=== PATIENT | female | born 1980 | race Caucasian/White ===

== ENCOUNTER 2018-05-17 15:30 | Outpatient (RCR) | payer OTHER, SELFPAY ==
--- NOTE | 2017-08-11 12:59 | MASS.EVAL ---
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 She was referred to the [facility] facility for a massotherapy evaluation by Dr. Louis Segura with the diagnosis of back aches. Alexandra presents today with the symptoms of tension and pain in her neck, upper, lower back, hips and legs. She reports having a history of chronic back pain and muscle tension in her neck, shoulders and low back. She reports having minimal limitations during her daily activities currently. OBJECTIVE: Upon observation Alexandra has poor posture with her head forward and shoulders forward from the neutral position in sitting and standing. After examination and palpation I found Alexandra to have very high muscle tension in her scalenes, trapezius, rhomboids, and sub occipitals with no restrictions in cervical ROM. Her thoracic paraspinals were tender with muscle knots. Her hips, hamstrings and lumbar muscles were also very tight with tender points. The first treatment consisted of a one hour massage to her full body with myofascial release and compression techniques. ASSESSMENT: I feel that Alexandra is a good candidate for massotherapy at this time. She had a favorable response to the first treatment with reduction in her muscle aches, pain and tension. She also had improvement in her cervical and lumbar range of motion with improved flexibility in her neck, back and lower extremities. PLAN: The plan of care was reviewed with the patient. The patient is to be seen on as needed basis for a total of ten sessions with the recommendation of once every four weeks for a one hour treatment.
--- NOTE | 2017-08-11 13:08 | MASS.EVAL_ITS ---
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 She was referred to the [facility] facility for a massotherapy evaluation by Dr. Louis Segura with the diagnosis of back aches. Alexandra presents today with the symptoms of tension and pain in her neck, upper, lower back, hips and legs. She reports having a history of chronic back pain and muscle tension in her neck, shoulders and low back. She reports having minimal limitations during her daily activities currently. OBJECTIVE: Upon observation Alexandra has poor posture with her head forward and shoulders forward from the neutral position in sitting and standing. After examination and palpation I found Alexandra to have very high muscle tension in her scalenes , trapezius, rhomboids, and sub occipitals with no restrictions in cervical ROM. Her thoracic paraspinals were tender with muscle knots. Her hips, hamstrings and lumbar muscles were also very tight with tender points. The first treatment consisted of a one hour massage to her full body with myofascial release and compression techniques. ASSESSMENT: I feel that Alexandra is a good candidate for massotherapy at this time. She had a favorable response to the first treatment with reduction in her muscle aches, pain and tension. She also had improvement in her cervical and lumbar range of motion with improved flexibility in her neck, back and lower extremities. PLAN: The plan of care was reviewed with the patient. The patient is to be seen on as needed basis for a total of ten sessions with the recommendation of once every four weeks for a one hour treatment.
--- NOTE | 2018-07-14 11:08 | DS.PCM_ITS ---
Massage Therapy Discharge Summary: Initial Evaluation: 08/03/2017 Diagnosis: Back ache No. of Visits: 5 of 10 Date of last visit: 05/17/2018 Goals: Decreased pain Increased flexibility This patient is being discharged from our care at the [facility]. Thank you, Renata Morales LMT
== END 2018-05-17 19:00 | disposition home or self-care (01) ==
LOC: MASS 15:30
PROVIDERS: Family Provider Internal Medicine; PCP Internal Medicine; Visit Provider Family Medicine
DX: M54.9 Dorsalgia, unspecified (principal)
CPT/HCPCS: 97124

== ENCOUNTER → 2019-06-14 14:24 | Outpatient (CLI) | payer OTHER, SELFPAY ==
[2019-06-13 14:55] VITALS: BMI 20.5
== END ==
PROVIDERS: Family Provider Family Medicine; PCP Family Medicine; Referring Provider Physician Assistant Surgical; Visit Provider Physician Assistant Surgical
DX: J02.9 Acute pharyngitis, unspecified (principal)
CPT/HCPCS: 87070

== ENCOUNTER 2019-07-03 13:30 | Outpatient (RCR) | payer OTHER, SELFPAY ==
[2018-08-18 08:18] VITALS: BMI 20.5
--- NOTE | 2018-10-10 16:24 | MASS.EVAL ---
Massage Therapy Evaluation: Initial Evaluation Date: 10/10/2018 /Age: 0802/23/1983, 38 Diagnosis: Body Aches Medications: Albuterol Merena Goals: Decrease muscle pain/ache Decrease muscle tension Improve range of motion Plan: The patient is a good candidate for massage. She is to be seen one time per month or PRN for a total of 10 visits. Renata Morales LMT
--- NOTE | 2019-07-05 11:38 | MASS.DISCH ---
Massage Therapy Discharge Summary: Initial Evaluation Date: 10/10/2018 Diagnosis: Body Aches No. of Visits: Date of last visit: 07/03/2019 Goals: Achieved decreased muscle pain/ache, decreased muscle tension amd improved ROM. This patient is being discharged from our care at the [facility]. Thank you, Renata Morales LMT
== END 2019-07-03 19:00 | disposition home or self-care (01) ==
LOC: MASS 13:30
PROVIDERS: Family Provider Family Medicine; PCP Family Medicine; Visit Provider Family Medicine
DX: M79.10 Myalgia, unspecified site (principal)
CPT/HCPCS: 97124

== ENCOUNTER → 2020-06-19 | Outpatient (CLI) | payer OTHER, SELFPAY ==
[2019-06-13 14:55] VITALS: BMI 20.5
== END | disposition home or self-care (01) ==
PROVIDERS: PCP Family Medicine; Visit Provider Dermatology
DX: B35.1 Tinea unguium (principal); L60.3 Nail dystrophy; L82.1 Other seborrheic keratosis
CPT/HCPCS: 87101

== ENCOUNTER 2020-07-01 12:15 | Outpatient (RCR) | payer OTHER, SELFPAY ==
[2019-06-13 14:55] VITALS: BMI 20.5
--- NOTE | 2019-09-20 14:38 | MASS.EVAL ---
Massage Therapy Evaluation: Initial Evaluation Date: 09/20/2007 /Age: 08 1980, 39 Diagnosis: Body Aches Goals: Decrease mucsle tension Promote relaxation Assessment: Alexandra is a good candidate for massage at this time. We have had success treating her symptoms in the past. Plan: To be seen one time per month or PRN for a total of 10 one hour sessions.
--- NOTE | 2020-07-15 12:00 | DS.PCM_ITS ---
Massage Therapy Discharge Summary: Initial Evaluation Date: 09/20/2019 Diagnosis: Body Aches No. of Visits: 7 Date of last visit: 07/01/2020 This patient is being discharged from our care at the [facility]. Thank you, Renata Morales LMT
== END 2020-07-01 19:00 | disposition home or self-care (01) ==
LOC: MASS 12:15
PROVIDERS: PCP Family Medicine; Referring Provider Family Medicine; Visit Provider Family Medicine
DX: R52 Pain, unspecified (principal)
CPT/HCPCS: 97124

== ENCOUNTER 2021-06-09 13:45 | Outpatient (RCR) | payer OTHER, SELFPAY ==
[2019-06-13 14:55] VITALS: BMI 20.5
--- NOTE | 2020-09-02 15:48 | MASS.EVAL ---
Massage Therapy Evaluation: Initial Evaluation Date: 08/28/2020 SUBJECTIVE: Alexandra is a 40 year old female who was referred to the [facility] facility for a massotherapy evaluation by Dr. Don with the diagnosis of body aches. She presents today with the symptoms of pain, stiffness and tension in the neck, head, mid back, low back, and hips. Alexandra reports having a past medical history of chronic pain with muscle tension. She reports having minimal improvement with exercise and stretching over the last few months. OBJECTIVE: Upon observation Alexandra has some posture issues with her head and shoulders forward from the neutral position in sitting and standing. After examination and palpation, I found Alexandra to have high muscle tension with tenderness and myofascial restrictions in her sub occipitals, levator scapulae, trapezius, rhomboids, scalenes, and thoracic paraspinals. Her QL?s, lumbar paraspinals, piriformis, glute medius and minimus all were very tight with fascial restrictions, tender points and trigger points. The first treatment consisted of a one hour massage to her upper body with myofascial release, muscle stripping, trigger point compression techniques, and cervical manual traction. ASSESSMENT: I feel that Alexandra is a good candidate for massotherapy at this time. She had a favorable response to the first treatment with reduction in her muscle aches, pain and tension. She also had improvement in her cervical flexibility and low back flexibility. PLAN: The plan of care was reviewed with the patient. The patient is to be seen on an as needed basis for a total of ten sessions with the recommendation of once every month for a one hour treatment.
--- NOTE | 2021-06-09 15:09 | DS.PCM_ITS ---
Massage Therapy Discharge Summary: Discharge Date: 06/09/2021 Alexandra was seen for a massotherapy evaluation on 08/28/2020 with the diagnosis of body aches. She was treated with ten sessions of massage therapy consisting of deep pressure soft tissue techniques, myofascial release and trigger point compression to her cervical, thoracic, lower back, lower extremities and hips. Alexandra responded well to the therapy by reporting decreased tension and pain throughout her neck, shoulders, lower back and hips. Her goals for therapy were met throughout the treatment sessions. At this time this patient is being discharged from our care at [facility] facility.
== END 2021-06-09 19:00 | disposition home or self-care (01) ==
LOC: MASS 13:45
PROVIDERS: PCP Family Medicine; Visit Provider Family Medicine
DX: M79.10 Myalgia, unspecified site (principal)
CPT/HCPCS: 97124

== ENCOUNTER → 2021-12-19 | Outpatient (CLI) | payer OTHER, SELFPAY | END | disposition home or self-care (01) | PROVIDERS: PCP Family Medicine; Referring Provider Family Medicine; Visit Provider Family Medicine | DX: Z01.419 Encounter for gynecological examination (general) (routine) without abnormal findings (principal) | CPT/HCPCS: 36415 ==

== ENCOUNTER → 2022-04-14 | Outpatient (CLI) | payer OTHER, SELFPAY ==
--- NOTE | 2022-04-14 07:55 | BI_ITS ---
MAMMOGRAPHY - BILATERAL SCREENING 3-D TOMOSYNTHESIS REASON FOR EXAM: Female, 42 years old. SCREENING PERTINENT HISTORY: No significant family history. TECHNIQUE: 2-D mammograms and 3-D Tomosynthesis of the breast (s) were performed. CAD was performed. COMPARISON: None. FINDINGS: The breast composition is Extermely dense tissue. Scattered benign calcifications are seen. No dense spiculated masses or suspicious microcalcifications are identified. No architectural distortion is identified. There is no skin thickening or retraction. There has been no significant change since the prior study. BI/SCRN MAMM (CAD)W/CHANDA BILAT IMPRESSION: No mammographic signs of malignancy. Routine yearly mammograms recommended. ASSESSMENT CATEGORY: BIRADS Category 1: Negative. A letter regarding these results will be sent to the patient by the facility within 30 days. FOLLOW UP RECOMMENDATION: Yearly follow up mammogram recommended. (A) Approximately 10% of breast cancers are not detected by mammography. A normal mammogram should not delay biopsy of a clinically suspicious abnormality. Electronically Signed: Trevor Diaz MD at 8:52 EDT ,
== END | disposition home or self-care (01) ==
LOC: OPBI 07:54
PROVIDERS: PCP Family Medicine; Visit Provider Obstetrics & Gynecology
DX: Z12.31 Encounter for screening mammogram for malignant neoplasm of breast (principal)
CPT/HCPCS: 77063; 77067

== ENCOUNTER → 2023-01-15 | Outpatient (CLI) | payer OTHER, SELFPAY ==
--- NOTE | 2023-01-15 10:58 | RAD_ITS ---
INDICATION: HIP PAIN EXAMINATION/TECHNIQUE: X-RAY - LEFT XR Hip Unilateral with Pelvis when performed; 2-3 Views COMPARISON: None. FINDINGS: Single AP view of the pelvis. 2 views left hip. BONES: Bilateral L5 sacralization. Otherwise, anatomic alignment without evidence of fracture or subluxation. No concerning bony lesion or abnormal sclerosis to suggest lesion. JOINTS: No significant degenerative change. SOFT TISSUES: IUD overlies central pelvis. RAD/HIP, UNI W/ Pelvis 2-3 Views IMPRESSION: No acute osseous abnormality of the pelvis or left hip. Electronically Signed: Hilton Mcgarry MD at 21:17 EDT ,
== END | disposition home or self-care (01) ==
LOC: RAD 10:53
PROVIDERS: PCP Family Medicine; Referring Provider Family Medicine; Visit Provider Family Medicine
DX: M25.552 Pain in left hip (principal)
CPT/HCPCS: 73502

== ENCOUNTER → 2023-02-04 | Outpatient (CLI) | payer OTHER, SELFPAY ==
[2023-02-04 12:21] LABS: Anion Gap 7 (5-15); BUN 16 mg/dL (7-18); BUN/Creat Ratio 19.6 RATIO (10-20); Calcium,Total 8.9 mg/dL (8.5-10.1); Chloride 105 mmol/L (98-107); Cholesterol 143 mg/dL (200); Creatinine, Serum 0.82 mg/dL (0.55-1.02); EST Glomerular Filtration Rate 82 mL/min (>60); Est Glom Filt Rate - Afr Amer 99 mL/min (>60); Glucose 89 mg/dL (74-106); High Density Lipoprotein 67 mg/dL; Potassium 3.8 mmol/L (3.5-5.1); Sodium Level 139 mmol/L (136-145); Triglycerides 89 mg/dL; Very Low Density Lipoprotein 18 mg/dL (5-40)
== END | disposition home or self-care (01) ==
PROVIDERS: PCP Family Medicine; Referring Provider Family Medicine; Visit Provider Family Medicine
DX: Z01.419 Encounter for gynecological examination (general) (routine) without abnormal findings (principal)
CPT/HCPCS: 36415; 80048; 80061

== ENCOUNTER → 2023-04-15 | Outpatient (CLI) | payer OTHER, SELFPAY ==
--- NOTE | 2023-04-15 10:36 | BI_ITS ---
MAMMOGRAPHY - BILATERAL SCREENING REASON FOR EXAM: Female, 43 years old. Routine annual screening examination. PERTINENT HISTORY: Non-contributory. TECHNIQUE: Digital bilateral breast chanda (3D mammographic acquisition) in the CC and MLO projections. 2-D mediolateral oblique (MLO) and craniocaudad (CC) views of both breasts were obtained. CAD: Full Field Digital Mammography with Computer Added Detection was performed. COMPARISON: Comparison is made with prior study of April 14, 2022. FINDINGS: Breast Composition: The breasts are extremely dense, which lowers the sensitivity of mammography. There are no dominant masses or suspicious calcifications. No other significant abnormalities are identified. There has been no significant change since the prior study. BI/SCRN MAMM (CAD)W/CHANDA BILAT IMPRESSION: Stable bilateral screening mammogram. Yearly follow-up mammogram recommended. (A) ASSESSMENT CATEGORY: BIRADS Category 1: Negative. A letter regarding these results will be sent to the patient by the facility within 30 days. Approximately 10% of breast cancers are not detected by mammography. A normal mammogram should not delay biopsy of a clinically suspicious abnormality. [id number] Electronically Signed: Flo Persaud MD at 12:35 EDT ,
== END | disposition home or self-care (01) ==
LOC: OPBI 10:34
PROVIDERS: PCP Family Medicine; Referring Provider Obstetrics & Gynecology; Visit Provider Obstetrics & Gynecology
DX: Z12.31 Encounter for screening mammogram for malignant neoplasm of breast (principal)
CPT/HCPCS: 77063; 77067

== ENCOUNTER → 2024-05-10 | Outpatient (CLI) | payer OTHER, SELFPAY ==
--- NOTE | 2024-05-10 15:07 | RAD_ITS ---
EXAM: XR CHEST, 2 VIEWS CLINICAL INDICATION: COUGH TECHNIQUE: Frontal and lateral views of the chest. COMPARISON: No relevant prior studies available. FINDINGS: LUNGS AND PLEURAL SPACES: Unremarkable. No consolidation or edema. No pneumothorax. No effusion. HEART: Unremarkable. Cardiac silhouette not enlarged. MEDIASTINUM: Central airways and mediastinal contour are unremarkable. BONES/JOINTS: Unremarkable. No acute fracture. SOFT TISSUES: Unremarkable. RAD/Chest PA and Lateral IMPRESSION: No radiographic evidence of acute cardiopulmonary disease. Electronically Signed: José Miguel Sams MD at 18:41 EDT ,
== END | disposition home or self-care (01) ==
LOC: MTRAD 15:06
PROVIDERS: PCP Family Medicine; Referring Provider Family Medicine; Visit Provider Family Medicine
DX: R05.9 Cough, unspecified (principal)
CPT/HCPCS: 71046

== ENCOUNTER → 2024-05-18 | Outpatient (CLI) | payer OTHER, SELFPAY ==
--- NOTE | 2024-05-18 11:49 | BI_ITS ---
MAMMOGRAPHY - BILATERAL SCREENING REASON FOR EXAM: Female, 44 years old. Routine annual screening examination. PERTINENT HISTORY: Non-contributory. TECHNIQUE: Digital bilateral breast chanda (3D mammographic acquisition) in the CC and MLO projections. 2-D mediolateral oblique (MLO) and craniocaudad (CC) views of both breasts were obtained. CAD: Full Field Digital Mammography with Computer Added Detection was performed. COMPARISON: Comparison is made with prior study dated April 15, 2023 April 14, 2022. FINDINGS: Breast Composition: The breasts are extremely dense, which lowers the sensitivity of mammography. There are no dominant masses or suspicious calcifications. No other significant abnormalities are identified. There has been no significant change since the prior study. BI/SCRN MAMM (CAD)W/CHANDA BILAT IMPRESSION: Stable bilateral screening mammogram. Yearly follow-up mammogram recommended. (A) ASSESSMENT CATEGORY: BIRADS Category 1: Negative. A letter regarding these results will be sent to the patient by the facility within 30 days. Approximately 10% of breast cancers are not detected by mammography. A normal mammogram should not delay biopsy of a clinically suspicious abnormality. [id number] Electronically Signed: Flo Persaud MD at 13:15 EDT ,
== END | disposition home or self-care (01) ==
LOC: OPBI 11:47
PROVIDERS: PCP Family Medicine; Referring Provider Nurse Practitioner Family; Visit Provider Nurse Practitioner Family
DX: Z12.31 Encounter for screening mammogram for malignant neoplasm of breast (principal)
CPT/HCPCS: 77063; 77067

== ENCOUNTER → 2025-02-09 | Outpatient (CLI) | payer OTHER, SELFPAY | END | disposition home or self-care (01) | LOC: MFPLAB 14:54 | PROVIDERS: PCP Family Medicine; Referring Provider Family Medicine; Visit Provider Family Medicine | DX: Z13.29 Encounter for screening for other suspected endocrine disorder (principal) | CPT/HCPCS: 84443 ==

== ENCOUNTER → 2025-05-28 | Outpatient (CLI) | payer OTHER, SELFPAY ==
--- NOTE | 2025-05-28 13:34 | BI_ITS ---
EXAM: BI/SCRN MAMM (CAD)W/CHANDA BILAT
== END | disposition home or self-care (01) ==
LOC: OPBI 13:33
PROVIDERS: PCP Family Medicine; Referring Provider Obstetrics & Gynecology; Visit Provider Obstetrics & Gynecology
DX: Z12.31 Encounter for screening mammogram for malignant neoplasm of breast (principal)
CPT/HCPCS: 77063; 77067

== ENCOUNTER → 2025-06-27 | Outpatient (CLI) | payer OTHER, SELFPAY ==
--- NOTE | 2025-06-27 15:40 | RAD_ITS ---
PROCEDURE: CERV SPINE OBL/FLEX/EXT COMP 06/27/2025 REASON FOR EXAM: CERVICALGIA TECHNIQUE: Procedure Code: [id number] Modality: DX Procedure: CERV SPINE OBL/FLEX/EXT COMP COMPARISON: None FINDINGS: Cervical spine 7 views with flexion and extension. Vertebral body height is maintained. There is grade 1 retrolisthesis at C3-4, 0.2 cm with extension, 0 cm with flexion. There is grade 1 retrolisthesis at C4-5, 0.2 cm with extension, 0 cm with flexion. The facets are aligned. Soft tissues are unremarkable. Mineralization is normal. There is no visible atherosclerosis. RAD/Cerv Spine Obl/Flex/Ext Comp IMPRESSION: There is grade 1 retrolisthesis at C3-4, 0.2 cm with extension, 0 cm with flexi on. There is grade 1 retrolisthesis at C4-5, 0.2 cm with extension, 0 cm with flexion. Reading Location: [facility]
--- OUTSIDE RECORDS SUMMARY | 2025-06-27 17:47 | XMS RPT_ITS | CCD ---
Author Organization [facility] Care Team Providers Care Manager Environmental Health And Safety Name Role Phone Dossi ALYSIAAnnie Unavailable Zonia Barton MD Primary Care Provider Dr. Louis Don Primary Care Provider Dr. Louis Don Referring Provider Dr. Hermes Barcenas Attending Provider LUCITA Perry Attending Provider Dr. Louis Don Primary Care Provider Dr. Louis Don Referring Provider LUCITA Perry Attending Provider Zonia Barton MD Primary Care Provider Dr. Louis Don MD Primary Care Provider [phone] Assessment, Health Risk Attending Provider Unava ilable Assessment, Health Risk Referring Provider Unava ilable Dr. Louis Don MD Attending Provider [phone] Louis Don MD Referring Provider SELF Referring Unavailable MIS FRAZIER Attending Unavailable Mis Frazier Referring Unavailable Mis Frazier Attending Unavailable Louis Don Primary Care Unavailable Louis Don Referring Unavailable Louis Don Attending Unavailable Louis Don Primary Care Unavailable Assessment, Health Risk Referring Unavaila ble Assessment, Health Risk Attending Unavaila ble Louis Don Primary Care Unavailable Allergies Allergy Classification Reported Allergen(s) Allergy Type Date of Onset Reaction(s) Facility (4 sources) CALCIUM OYSTER SHELL drug allergy 7 [facility] Work Phone: (4 sources) [facility] drug allergy 7 dermatitis [facility] Work Phone: (3 sources) Dust; Translations: [DUST] Propensity to adverse reactions [address] [facility] Work Phone: (8 sources) Latex; Translations: [LATEX] Propensity to adverse reactions [address] [facility] Work Phone: (3 sources) Pollen; Translations: [POLLEN] Propensity to adverse reactions [address] [facility] Work Phone: (2 sources) ANIMALS [Other] Propensity to adverse reactions [address] [facility] Work Phone: (2 sources) SHELL FISH [Other] Propensity to adverse reactions [address] [facility] Work Phone: (7 sources) Shellfish; Translations: [SHELLFISH DERIVED] Allergy to substance 9 unknown [facility] (1 source) Latex Drug allergy (disorder) 4 [facility] Repository Medications Current Medications Medication Drug Class(es) Dates Sig (Normalized) Sig (Original) [id number] 200 actuat albuterol 0.09 mg/actuat metered dose inhaler (3 sources) beta2-Adrenergic Agonist Start: 05-06-2024 Albuterol Sulfate 90 mcg/actuation HFA aerosol inhaler Active INHALATION May 06, 2024 12:00am Start: 07-01-2016 take 2 puff(s) by in halation every four hours as needed albuterol HFA (PROVENTIL HFA, VENTOLIN HFA) 90 mcg/actuation inhaler Indications: Uncomplicated asthma, unspecified asthma severity Inhale 2 Puffs as instructed every 4 hours as needed. 1 Inhaler 5 07/01/2016 Active Comment on above: Inhale 2 Puffs as in structed every 4 hours as needed. COMPOUNDED PRESCRIPTION (2 sources) Start: 10-20-2011 COMPOUNDED PRESCRIPTION Can have Massage Therapy as needed 1 Units 10 10/20/2011 Active Comment on above: Can have Massage The rapy as needed levonorgestrel 0.086116 mg/hr intrauterine system (6 sources) Progestin, Progestin-containing Intrauterine Device Start: 12-30-2020 End: 12-29-2026 levonorgestrel (MIRENA) 20 mcg/24 hours (6 yrs) 52 mg IUD Indications: Encounter for IUD insertion 1 Each by INTRAUTERINE route as directed. 1 Each 0 12/30/2020 12/29/2026 Active Start: 01-11-2017 MIRENA (52 MG) 20 MCG/24HR IUD IUD LEVONORGESTREL [id number] Annie Carrillo [place] Start: 01-11-2017 MIRENA (52 MG) 20 MCG/24HR IUD IUD LEVONORGESTREL [id number] Annie Carrillo DC Comment on above: 1 Each by INTRAUTERI NE route as directed. montelukast 10 mg oral tablet (11 sources) Leukotriene Receptor Antagonist Start: 01-29-20 16 take 1 tablet by mouth once daily in the evening Montelukast (Singulair) 10 mg tablet Active 10 mg PO EVERY EVENING August 18, 2018 1:00am Comment on above: Take 1 tablet by josesito th once daily. TAKE DIRECTED multivitamin tablet (2 sources) Start: 03-25-20 12 take 1 tablet by mouth once daily multivitamin tablet Take 1 tablet by mouth once daily. 0 03/25/2012 Active Comment on above: Take 1 tablet by josesito th once daily. predniSONE 20 mg oral tablet (2 sources) Start: 05-06-20 24 take 1 tablet by mouth twice daily Prednisone 20 mg tablet Active 20 mg PO TWICE A DAY May 06, 2024 12:00am Start: 05-06-2024 Prednisone 20 mg tablet Active 0 .ROUTE .COMPLEX 20 0 May 06, 2024 12:00am Take 3 tablets (60mg) daily for days 1-3 then 2 tablets daily for days 4-6 then 1 tablet daily for days 7-9 then 1/2 tablet daily for days 10-13; Completed/Discontinued Medications Medication Drug Class(es) Dates Sig (Normalized) Sig (Original) amoxicillin 500 mg oral capsule (5 sources) Penicillin-class Antibacterial Start: 08-18-2018 End: 08-28-2018 take 2 capsules by mouth twice daily Amoxicillin 500 mg capsule Discontinued 1000 mg PO TWICE A DAY 40 10 0 August 18, 2018 1:00am August 27, 2018 1:00am August 28, 2018 1:09am Start: 08-18-2018 End: 08-28-2018 take 1000 mg by mouth twice daily Amoxicillin Discontinued 1000 MG PO TWICE A DAY 40 August 18, 2018 1:00am August 28, 2018 1:09am amoxicillin 875 mg / clavulanate 125 mg oral tablet (1 source) Penicillin-class Antibacterial Start: 04-29-2024 End: 05-06-2024 Amoxicillin-Pot Clavulanate 875-125 mg tablet Discontinued 1 {tbl} PO TWICE A DAY 14 7 0 April 29, 2024 12:00am May 05, 2024 12:00am May 06, 2024 12:13am EPINEPHRINE (6 sources) alpha-Adrenergic Agonist, beta-Adrenergic Agonist, Catecholamine Start: 01-11-2017 EPIPEN 2-GABRIEL 0.3 MG/0.3ML SOAJ PRN EPINEPHRINE [id number] Annie Sheffield Dossi [place] Start: 01-11-2017 EPIPEN 2-GABRIEL 0 .3 MG/0.3ML SOAJ PRN EPINEPHRINE [id number] Annie Sheffield Dossi [place] Start: 04-07-2016 EPINEPHrine 0. 3 mg/0.3 mL auto-injector Indications: Toxic effect of fish and shellfish(988.0) Inject subcutaneously. use as directed 2 Each 0 04/07/2016 Active Comment on above: Inject subcutaneousl y. use as directed Problems Active Problems Problem Classification Problem Date Documented Date Episodic/Chronic Asthma (7 sources) Acute asthma; Translations: [Unspecified asthma, uncomplicated] Onset: 07-15-2006 01-11-2017 Chronic Other screening for suspected conditions (not mental disorders or infectious disease) (4 sources) Patient encounter status; Translations: [Encounter for screening mammogram for malignant neoplasm of breast] Onset: 02-15-2025 Episodic Other upper respiratory disease (4 sources) Seasonal allergy; Translations: [Other seasonal allergic rhinitis] Onset: 01-11-2017 01-11-2017 Chronic Other upper respiratory disease (2 sources) Allergic rhinitis; Translations: [Allergic rhinitis, unspecified] 03-25-2012 Chronic Other upper respiratory infections (10 sources) Streptococcal sore throat; Translations: [Streptococcal pharyngitis] 08-18-2018 Episodic Otitis media and related conditions (1 source) Perforation of tympanic membrane; Translations: [Unspecified perforation of tympanic membrane, unspecified ear] 04-29-2024 Episodic Past or Other Problems Problem Classification Problem Date Documented Da te Episodic/Chronic Allergic reactions (1 source) Contact dermatitis; Translations: [Unspecified contact dermatitis, unspecified cause] Onset: 07-15-2006 Resolved: 07-10-2011 07-10-2011 Episodic Other and unspecified benign neoplasm (2 sources) Dysplastic nevus of skin; Translations: [Melanocytic nevi, unspecified] Onset: 12-31-2014 12-31-2014 Episodic Other bone disease and musculoskeletal deformities (8 sources) Segmental and somatic dysfunction; Translations: [Segmental and somatic dysfunction of thoracic region] Onset: 01-11-2017 01-11-2017 Episodic Other complications of (1 source) Missed miscarriage; Translations: [Missed ] Onset: 09-10-2010 Resolved: 09-12-2010 09-12-2010 Episodic Other and delivery including normal (1 source) Normal in primigravida; Translations: [Encounter for supervision of normal first , unspecified trimester] Onset: 05-14-2011 Resolved: 01-25-2013 01-25-2013 Episodic Poisoning by nonmedicinal substances (1 source) Toxic effect of unspecified seafood, accidental (unintentional), initial encounter; Translations: [Toxic effect of fish and shellfish eaten as food] Onset: 08-09-2008 Resolved: 07-10-2011 07-10-2011 Episodic Results Test Name Value Interpretation Reference Range Facility SCRN MAMM (CAD)W/CHANDA BILATo n 05-28-2025 SCRN MAMM (CAD)W/CHANDA BILAT [facility] Imaging Services [address], [place] [id number] SCRN MAMM (CAD)W/CHANDA BILAT MR#: [id number] Acct: [id number] Name: ALEXANDRA HAYNES Rep #: [id number] : 1980 F 45 From: Sivan Staley i, MD PCP: Dr. Louis Don MD Status: REG CLI Study: SCRN MAMM (CAD)W/CHANDA BILAT Date of Exam: 10/17 Exam# [id number] Ordering Dr: Mis Frazier MD EXAM: SCRN MAMM (CAD)W/CHANDA BILAT DATE: 05/28/2025 CLINICAL HISTORY: F, Age 45 y/o , SCREENING TECHNIQUE: Procedure Code: BISMWCADBTOM Modality: MG Procedure: SCRN MAMM (CAD)W/CHANDA BILAT COMPARISON: Prior exam(s) were compared FINDINGS: TISSUE DENSITY: The breasts are extremely dense, which lowers the sensitivity of mammography. Bilateral Breast Mammographic Findings: No significant masses, calcifications or other abnormalities are identified. BI/SCRN MAMM (CAD)W/CHANDA BILAT IMPRESSION: No mammographic evidence of malignancy. OVERALL FINAL ASSESSMENT BI-RADS 1: NEGATIVE. RECOMMENDATION: Routine annual follow-up in 1 Year Additional Recommendation none A letter with findings and recommendations will be mailed to the patient. Reading Location: [facility] CC: Dr. Louis Don MD; Dr. Mis Frazier MD Magazine Worker: Signed [facility] CNOVon 05-09-2025 CNOV Office Visit (OBGYWM) -------- HAYNESALEXANDRA Sheffield ([id number]) 1980 F Date Time Provider Department 05/09/25 2:00 PM MIS FRAZIER OBGYWM During your visit today, we recorded the following information about you: Blood pressure Weight Height 98/58 61.2 kg 1.632 m Mis Frazier MD 05/09/2025 2:21 PM Signed Alexandra is a 45 year old who presents for an annual gynecologic exam without complaints. Still get period: No LMP: no w/ mirena Time with current partner: 26 control frequency: Always HPV vaccine: No; History of abnormal pap: No, all prior PAP smears have been normal Bothersome pelvic pain: No Last mammogram:up to date OB History Gravida2 Para1 Term1 Preterm0 AB1 Living1 SAB1 IAB0 Ectopic0 Multiple0 Live Births1 Telecommunications Linesworker History LMP: 12/14/2014, IUD Age at Menarche: 18 Age at First : Age at Menopause: Telecommunications Linesworker History Comments: Sexual Activity: Yes; Male; Mirena 12/30/2020 Contraception: I.U.D. PAST MEDICAL HISTORY Diagnosis Date Allergic rhinitis, cause unspecified DERMATITIS NOS 07/15/2006 Hypoglycemia, unspecified Unspecified asthma(493.90) PAST SURGICAL HISTORY Procedure Laterality Date INSERTION OF IUD 11/2014 INSERTION OF IUD 12/30/2020 TONSILLECTOMY PRIMARY/SECONDARY Tonsillectomy FAMILY HISTORY Problem Relation Age of Onset None Mother other (Rheumtoid Arthritis) Father Heart Father Diabetes Maternal Grandmother Stroke Maternal Grandmother Diabetes Maternal Grandfather Heart Maternal Grandfather mi, with a blocked artery Hypertension Maternal Grandfather Lipids Maternal Grandfather Cancer Maternal Aunt ovarian ca, unsure SOCIAL HISTORY Social History Tobacco Use Smoking status: Former Smokeless tobacco: Never Tobacco comments: smoked at the age of 19/18 for about one year and has seen quit (1 pack about every two weeks) Vaping Use Vaping status: Never Used Substance Use Topics Alcohol use: Yes Comment: RARELY,NOT WHILE Drug use: No REVIEW OF SYSTEMS Abdomen: No abdominal pain, nausea, vomiting, diarrhea, or constipation. No bloating, early satiety, indigestion, or increased flatulence. Bladder: No dysuria, gross hematuria, urinary frequency, urinary urgency, or incontinence. Breast: No breast lumps, nipple d/c, overlying skin changes, redness or skin retraction. Allergies and current medication updated:Yes SENSITIVE EXAM: The sensitive examination was discussed with the Patient or Patient's Authorized Gasoline Truck Operator. As applicable, any other physician, advance practice provider, medical student, or other health professional student that will be observing or involved in the sensitive examination for educational or training purposes was discussed with the Patient or Authorized Gasoline Truck Operator. The Patient or Authorized Gasoline Truck Operator has agreed to proceed with the sensitive examination. (Sensitive examination includes inspection and/or palpation of the breasts, pelvis, prostate and anorectal regions). EXAM: BP 98/58 Ht 5' 4.25 (1.63m) Wt 135 lb (61.2kg) LMP 12/14/2014 BMI 22.99 kg/(m2). GENERAL: pleasant, female in no apparent distress HEENT: Normocephalic, atraumatic, mucus membranes moist, and no lesions NECK: Supple, full range of motion, no adenopathy, and thyroid normal DERMATOLOGY: Normal, without lesions, non-icteric, and non-hirsute BREAST: soft, non-tender, symmetric, no dominant mass, normal nipple-areolar complex, no lymphadenopathy, and no nipple discharge CHEST: Normal inspiratory effort ABDOMEN: soft, non-tender, and no masses PELVIC: external genitalia normal, normal Bartholin's glands, urethra, [place]'s glands, no vulvar lesions, no cervical lesions, good vaginal support, physiologic discharge present, normal appearing perineal body and perianal region BIMANUAL: uterus normal size, shape and consistency, no adnexal masses, and non-tender RECTOVAGINAL: deferred. NEURO: alert and oriented x3,exam grossly non-focal EXTREMITIES: normal ASSESSMENT/PLAN: 1) Health maintenance: Pap done with HPV. Mammogram ordered. 2) Contraception: IUD. Contraceptive options reviewed and information provided. 3) STD screening: Declined STI check. 4) Follow up one year or sooner as needed Mis Frazier MD Referring Provider: SELF [200] Allergies As of Date: 05/09/2025 Noted Allergy Reaction DUST 09/02/2005 LATEX 09/30/2006 9 - Itching Comments: hands blister and break out. POLLEN 09/02/2005 SHELLFISH DERIVED 05/09/2025 10 - Anaphylaxis Date Reviewed: 05/09/2025 Reviewed by: Mis Frazier MD - Fully Assessed Reason for Visit: Yearly Exam [187] Primary Visit Diagnosis:Encounte r for gynecological examination (general) (routine) without abnormal findings [Z01.419] Prescriptions as of 05/09/2025 - levonorgestrel (MIRENA) 20 mcg/ (more content not included)... Normal [facility] Absolute lymphocyte countOrd ered By: HEALTH ASSESSMENT on 02-09-2025 Lymphocytes Auto (Unsp spec) [#/Vol] 1.80 10*3/uL 0.83-4.51 [facility] Absolute neutrophil countOrd ered By: HEALTH ASSESSMENT on 02-09-2025 Neutrophils (Bld) [#/Vol] 2.9 10*3/uL 2.0-7.7 [facility] Absolute nucleated red blood cell countOrdered By: HEALTH ASSESSMENT on 02-09-2025 Nucleated RBC (Bld) [#/Vol] 0.00 10*3/uL 0-5 [facility] Anion gap in Serum or Plasma Ordered By: HEALTH ASSESSMENT on 02-09-2025 Anion gap [Moles/Vol] 11 mmol/L 5-15 [facility] BUN/creatinine ratioOrdered By: HEALTH ASSESSMENT on 02-09-2025 Urea nitrogen/Creatinine [Mass ratio] 24.8 mg/mg High 10-20 [facility] Bilirubin Test strip Ql (U)O rdered By: HEALTH ASSESSMENT on 02-09-2025 Bilirubin Ql (U) Negative Negative [facility] Bilirubin directOrdered By: HEALTH ASSESSMENT on 02-09-2025 Bilirubin.direct [Mass/Vol] 0.23 mg/dL 0.00-0.30 [facility] Bilirubin, totalOrdered By: HEALTH ASSESSMENT on 02-09-2025 Bilirubin [Mass/Vol] 0.56 mg/dL 0.00-1.30 [facility] CBC, Employeeon 02-09-2025 Absolute Lymph 1.80 X10 3/uL Normal 0.83-4.51 [facility] Comment on above: Performed By: #### L 400.0100, L500.2900, L100.0200 #### [facility] [address] [place], [address] Absolute Neut 2.9 X10 3/uL Normal 2.0-7.7 [facility] Comment on above: Performed By: #### L 400.0100, L500.2900, L100.0200 #### [facility] [address] [place], [address] Basophils/100 WBC (Bld) 0.6 % Normal 0-1 [facility] Comment on above: Performed By: #### L 400.0100, L500.2900, L100.0200 #### [facility] [address] [place], [address] Eosinophils/100 WBC (Bld) 1.5 % Normal 0-5 [facility] Comment on above: Performed By: #### L 400.0100, L500.2900, L100.0200 #### [facility] [address] [place], [address] Erythrocyte distribution width (RBC) [Ratio] 12.6 % Normal 11.6-14.6 [facility] Comment on above: Performed By: #### L 400.0100, L500.2900, L100.0200 #### [facility] [address] [place], [address] Hematocrit (Bld) [Volume fraction] 38.8 % Normal 37-47 [facility] Comment on above: Performed By: #### L 400.0100, L500.2900, L100.0200 #### [facility] [address] [place], [address] Hemoglobin (Bld) [Mass/Vol] 13.1 g/dL Normal 12.0-15.0 [facility] Comment on above: Performed By: #### L 400.0100, L500.2900, L100.0200 #### [facility] [address] [place], [address] Lymphocytes/100 WBC (Bld) 34.5 % Normal 19-41 [facility] Comment on above: Performed By: #### L 400.0100, L500.2900, L100.0200 #### [facility] [address] [place], [address] MCH (RBC) [Entitic mass] 31.1 pg Normal 27.0-32.0 [facility] Comment on above: Performed By: #### L 400.0100, L500.2900, L100.0200 #### [facility] [address] [place], [address] MCHC (RBC) [Mass/Vol] 33.8 g/dL Normal 32-36 [facility] Comment on above: Performed By: #### L 400.0100, L500.2900, L100.0200 #### [facility] [address] [place], [address] MCV (RBC) [Entitic vol] 92.2 fL Normal 81-99 [facility] Comment on above: Performed By: #### L 400.0100, L500.2900, L100.0200 #### [facility] [address] [place], [address] Monocytes/100 WBC (Bld) 8.4 % Normal 0-10 [facility] Comment on above: Performed By: #### L 400.0100, L500.2900, L100.0200 #### [facility] [address] [place], [address] Neutrophils/100 WBC (Bld) 54.8 % Normal 47-70 [facility] Comment on above: Performed By: #### L 400.0100, L500.2900, L100.0200 #### [facility] [address] [place], [address] NRBC # 0.00 10 3/uL Normal 0-5 [facility] Comment on above: Performed By: #### L 400.0100, L500.2900, L100.0200 #### [facility] [address] [place], [address] Nucleated RBC (Bld) [#/Vol] 0 10*3/uL Normal 0-5 [facility] Comment on above: Performed By: #### L 400.0100, L500.2900, L100.0200 #### [facility] [address] [place], [address] Platelet mean volume (Bld) [Entitic vol] 10.0 fL Normal 6.2-12.0 [facility] Comment on above: Performed By: #### L 400.0100, L500.2900, L100.0200 #### [facility] [address] [place], [address] Platelets (Bld) [#/Vol] 233 10*3/uL Normal 150-450 [facility] Comment on above: Performed By: #### L 400.0100, L500.2900, L100.0200 #### [facility] [address] [place], [address] RBC (Bld) [#/Vol] 4.21 10*6/uL Normal 4.2-5.4 [facility] Comment on above: Performed By: #### L 400.0100, L500.2900, L100.0200 #### [facility] [address] [place], [address] RDW SD 42.9 fl Normal 35.1-43.9 [facility] Comment on above: Performed By: #### L 400.0100, L500.2900, L100.0200 #### [facility] [address] [place], [address] WBC (Bld) [#/Vol] 5.2 10*3/uL Normal 4.4-11.0 [facility] Comment on above: Performed By: #### L 400.0100, L500.2900, L100.0200 #### [facility] [address] [place], [address] Calculated very low density lipoprotein (VLDL) cholesterol measurementOrdered By: HEALTH ASSESSMENT on 02-09-2025 Calculated very low density lipoprotein (VLDL) cholesterol measurement 25 mg/dL 5-40 [facility] Carbon dioxide, total [Moles /volume] in Central venous bloodOrdered By: HEALTH ASSESSMENT on 02-09-2025 CO2 [Moles/Vol] 24.3 mmol/L 21.0-32.0 [facility] Chloride assayOrdered By: HE ALTH ASSESSMENT on 02-09-2025 Chloride [Moles/Vol] 104 mmol/L 98-108 [facility] Profile[employer] Cholesterol in LDL [Mass/Vol] 62 mg/dL Normal 0-130 [facility] Comment on above: Performed By: #### L 400.0100, L500.2900, L100.0200 #### [facility] [address] [place], [address] Erythrocyte distribution wid th ratioOrdered By: HEALTH ASSESSMENT on 02-09-2025 Erythrocyte distribution width (RBC) [Ratio] 12.6 % 11.6-14.6 [facility] Erythrocyte distribution wid th standard deviationOrdered By: HEALTH ASSESSMENT on 02-09-2025 Erythrocyte distribution width (RBC) [Ratio] 42.9 fl 35.1-43.9 [facility] Glomerular filtration rate ( GFR) estimation/1.73 sq m using serum, plasma, or whole bOrdered By: HEALTH ASSESSMENT on 02-09-2025 GFR/1.73 sq M.predicted among non-blacks MDRD (S/P/Bld) [Vol rate/Area] 102 mL/min/{1.73_m2} >60 [facility] Comment on above: mL/min/1.73m2 CKD-EP I Creatinine Equation (2020) Hematocrit Auto (Bld) [Volum e fraction]Ordered By: HEALTH ASSESSMENT on 02-09-2025 Hematocrit (Bld) [Volume fraction] 38.8 % 37-47 [facility] Hemoglobin measurementOrdere d By: HEALTH ASSESSMENT on 02-09-2025 Hemoglobin (Bld) [Mass/Vol] 13.1 g/dL 12.0-15.0 [facility] Ketones Test strip Ql (U)Ord ered By: HEALTH ASSESSMENT on 02-09-2025 Ketones Ql (U) Negative Negative [facility] Laboratory - Chemistry and C hemistry - challengeOrdered By: HEALTH ASSESSMENT on 02-09-2025 AST [Catalytic activity/Vol] 18 U/L <32 [facility] Lactate dehydrogenase (LDH) measurementOrdered By: HEALTH ASSESSMENT on 02-09-2025 LDH [Catalytic activity/Vol] 160 U/L 84-246 [facility] Comment on above: Hemolysis present, R esults could be affected. MCV (mean corpuscular volume ) determinationOrdered By: HEALTH ASSESSMENT on 02-09-2025 MCV (RBC) [Entitic vol] 92.2 fL 81-99 [facility] Mean corpuscular hemoglobin (MCH) determinationOrdered By: HEALTH ASSESSMENT on 02-09-2025 MCH (RBC) [Entitic mass] 31.1 pg 27.0-32.0 [facility] Mean corpuscular hemoglobin concentration (MCHC) determinationOrdered By: HEALTH ASSESSMENT on 02-09-2025 MCHC (RBC) [Mass/Vol] 33.8 g/dL 32-36 [facility] Mean platelet volume determi nationOrdered By: HEALTH ASSESSMENT on 02-09-2025 Platelet mean volume (Bld) [Entitic vol] 10.0 fL 6.2-12.0 [facility] Neutrophil percentageOrdered By: HEALTH ASSESSMENT on 02-09-2025 Neutrophils/100 WBC (Bld) 54.8 % 47-70 [facility] Nitrite Test strip Ql (U)Ord ered By: HEALTH ASSESSMENT on 02-09-2025 Nitrite Ql (U) Negative Negative [facility] Nucleated red blood cell per centageOrdered By: HEALTH ASSESSMENT on 02-09-2025 Nucleated RBC/100 WBC (Bld) [Ratio] 0 % 0-5 [facility] Platelet countOrdered By: HE ALTH ASSESSMENT on 02-09-2025 Platelets (Bld) [#/Vol] 233 10*3/uL 150-450 [facility] Potassium measurement (mass/ volume)Ordered By: HEALTH ASSESSMENT on 02-09-2025 Potassium (Unsp spec) [Mass/Vol] 4.0 mmol/L 3.3-5.1 [facility] Comment on above: Hemolysis present, R esults could be affected. Protein Test strip Ql (U)Ord ered By: HEALTH ASSESSMENT on 02-09-2025 Protein Ql (U) 15 mg/dl High Negative [facility] RBC Auto (Bld) [#/Vol]Ordere d By: HEALTH ASSESSMENT on 02-09-2025 RBC (Bld) [#/Vol] 4.21 10*6/uL 4.2-5.4 [facility] Screening total cholesterol/ high density lipoprotein (HDL) cholesterol ratioOrdered By: HEALTH ASSESSMENT on 02-09-2025 Cholesterol.total/Gris sterol in HDL [Mass ratio] 2.30 {ratio} [facility] Serum creatinine measurement (mass/volume)Ordered By: HEALTH ASSESSMENT on 02-09-2025 Creatinine [Mass/Vol] 0.75 mg/dL 0.70-1.20 [facility] Serum globulin measurementOr dered By: HEALTH ASSESSMENT on 02-09-2025 Globulin (S) [Mass/Vol] 2.4 g/dL 2.2-4.2 [facility] Serum glucose measurement (m ass/volume)Ordered By: HEALTH ASSESSMENT on 02-09-2025 Glucose [Mass/Vol] 103 mg/dL High 70-99 [facility] Serum or plasma alanine mendez otransferase (ALT) measurementOrdered By: HEALTH ASSESSMENT on 02-09-2025 ALT [Catalytic activity/Vol] 16 U/L <35 [facility] Serum or plasma albumin kyung urement (mass/volume)Ordered By: HEALTH ASSESSMENT on 02-09-2025 Albumin [Mass/Vol] 4.4 g/dL 3.5-5.0 [facility] Serum or plasma albumin/glob ulin mass ratioOrdered By: HEALTH ASSESSMENT on 02-09-2025 Albumin/Globulin [Mass ratio] 1.8 {ratio} 0.9-2.4 [facility] Serum or plasma alkaline nikita sphatase measurementOrdered By: HEALTH ASSESSMENT on 02-09-2025 ALP [Catalytic activity/Vol] 41 U/L 35-104 [facility] Serum or plasma calcium kyung urement (mass/volume)Ordered By: HEALTH ASSESSMENT on 02-09-2025 Calcium [Mass/Vol] 9.1 mg/dL 7.6-11.0 [facility] Serum or plasma cholesterol in HDL measurement (mass/volume)Ordered By: HEALTH ASSESSMENT on 02-09-2025 Cholesterol in HDL [Mass/Vol] 66 mg/dL >40 [facility] Comment on above: National Cholesterol Education Program (NCEP) guidelines:<40 mg/dL: Low HDL-cholesterol (major risk factor for CHD)>= 60 mg/dL: High HDL-cholesterol (negative risk factor for CHD)HDL-cholesterol is affected by a number of factors, e.g. smoking, exercise, hormones, sex and age. Serum or plasma cholesterol in LDL measurement (mass/volume)Ordered By: HEALTH ASSESSMENT on 02-09-2025 Cholesterol in LDL [Mass/Vol] 62 mg/dL 0-130 [facility] Serum or plasma cholesterol measurement (mass/volume)Ordered By: HEALTH ASSESSMENT on 02-09-2025 Cholesterol [Mass/Vol] 153 mg/dL <201 [facility] Comment on above: Cholesterol level, D esirable <200 mg/dLBorderline high cholesterol 200-239 mg/dLHigh cholesterol >=240 mg/dLRecommendations of the NCEP Adult Treatment Panel for the following risk-cutoff thresholds for the [place] population. Serum or plasma urea nitroge n measurement (mass/volume)Ordered By: HEALTH ASSESSMENT on 02-09-2025 Urea nitrogen [Mass/Vol] 19 mg/dL 4-19 [facility] Serum or plasma uric acid me asurement (mass/volume)Ordered By: [facility] ASSESSMENT on 02-09-2025 Urate [Mass/Vol] 3.2 mg/dL 2.6-6.0 [facility] Comment on above: The drugs N-Acetylcy steine and Metamizole may falsely depress this assay. Sodium levelOrdered By: [facility] ASSESSMENT on 02-09-2025 Sodium [Moles/Vol] 140 mmol/L 133-145 [facility] TSH DL <= 0.005 mIU/L QnOrde red By: Louis Don on 02-09-2025 TSH Qn 0.446 uIU/mL 0.300-4.200 [facility] Thyroid Stim Hormone (TSH)on 02-09-2025 TSH 0.446 uIU/mL Normal 0.300-4.200 [facility] Comment on above: Order Comment: ALYSA Khan ADD ON TO SPECIMENT #[id number] Performed By: #### L [id number] #### [facility] [address] [place], [address] Total proteinOrdered By: [facility] ASSESSMENT on 02-09-2025 Protein [Mass/Vol] 6.8 g/dL 5.9-8.4 [facility] Triglycerides measurementOrd ered By: HEALTH ASSESSMENT on 02-09-2025 Triglyceride [Mass/Vol] 126 mg/dL <199 [facility] Comment on above: The drugs N-Acetylcy steine and Metamizole may falsely depress this assay. Normal range: <150 mg/dLBorderline High: 150-199 mg/dLHigh: 200-499 mg/dLVery High: >500 mg/dL Urinalysis, Employeeon 02-09 BILIRUBIN URINE Negative Normal Negative [facility] Comment on above: Order Comment: Urine , Random Performed By: #### L 400.0100, L500.2900, L100.0200 #### [facility] [address] [place], [address] Clarity (U) Clear Normal Clear [facility] Comment on above: Order Comment: Urine , Random Performed By: #### L 400.0100, L500.2900, L100.0200 #### [facility] [address] [place], [address] Color (U) Yellow Normal Yellow [facility] Comment on above: Order Comment: Urine , Random Performed By: #### L 400.0100, L500.2900, L100.0200 #### [facility] [address] [place], [address] GLUCOSE, UR Normal Normal Normal [facility] Comment on above: Order Comment: Urine , Random Performed By: #### L 400.0100, L500.2900, L100.0200 #### [facility] [address] [place], [address] KETONE UR Negative Normal Negative [facility] Comment on above: Order Comment: Urine , Random Performed By: #### L 400.0100, L500.2900, L100.0200 #### [facility] [address] [place], [address] LEUK ESTERASE 100 /ul Abnormal Negative [facility] Comment on above: Order Comment: Urine , Random Performed By: #### L 400.0100, L500.2900, L100.0200 #### [facility] [address] [place], [address] Nitrite Ql (U) Negative Normal Negative [facility] Comment on above: Order Comment: Urine , Random Performed By: #### L 400.0100, L500.2900, L100.0200 #### [facility] [address] [place], [address] OCCULT BLOOD-UR Negative Normal Negative [facility] Comment on above: Order Comment: Urine , Random Performed By: #### L 400.0100, L500.2900, L100.0200 #### [facility] [address] [place], [address] pH UR 7.0 Normal 5.0 - 8.0 [facility] Comment on above: Order Comment: Urine , Random Performed By: #### L 400.0100, L500.2900, L100.0200 #### [facility] [address] [place], [address] PROT DIPSTX 15 mg/dl Abnormal Negative [facility] Comment on above: Order Comment: Urine , Random Performed By: #### L 400.0100, L500.2900, L100.0200 #### [facility] [address] [place], [address] SP.GR. DIPSTX 1.010 Normal 1.002-1.030 [facility] Comment on above: Order Comment: Urine , Random Performed By: #### L 400.0100, L500.2900, L100.0200 #### [facility] [address] [place], [address] UROBILI Normal Normal Normal [facility] Comment on above: Order Comment: Urine , Random Performed By: #### L 400.0100, L500.2900, L100.0200 #### [facility] [address] [place], [place], [id number] Urine clarityOrdered By: [facility] ASSESSMENT on 02-09-2025 Clarity (U) Clear Clear [facility] Urine color determinationOrd ered By: HEALTH ASSESSMENT on 02-09-2025 Color (U) Yellow Yellow [facility] Urine glucose detectionOrder ed By: HEALTH ASSESSMENT on 02-09-2025 Glucose Ql (U) Normal mg/dl Normal [facility] Urine leukocyte esterase det ection by dipstickOrdered By: HEALTH ASSESSMENT on 02-09-2025 Leukocyte esterase Test strip Ql (U) 100 /ul High Negative [facility] Urine pHOrdered By: HEALTH A SSESSMENT on 02-09-2025 pH (U) 7.0 [pH] 5.0 - 8.0 [facility] Urine specific gravity measu rementOrdered By: HEALTH ASSESSMENT on 02-09-2025 Specific gravity (U) [Rel density] 1.010 1.002-1.030 [facility] Urine urobilinogen measureme ntOrdered By: HEALTH ASSESSMENT on 02-09-2025 Urobilinogen Ql (U) Normal mg/dl Normal [facility] White blood cell (WBC) count Ordered By: HEALTH ASSESSMENT on 02-09-2025 WBC (Bld) [#/Vol] 5.2 10*3/uL 4.4-11.0 [facility] Absolute lymphocyte countOrd ered By: HEALTH ASSESSMENT on 02-04-2023 Lymphocytes Auto (Unsp spec) [#/Vol] 1.97 10*3/uL 0.83-4.51 [facility] Absolute reticulocyte countO rdered By: HEALTH ASSESSMENT on 02-04-2023 Reticulocytes (Bld) [#/Vol] 0.00 10*3/uL 0-5 [facility] Basophil percentageOrdered B y: Louis Don on 02-04-2023 Chloride [Moles/Vol] 105 mmol/L 98-107 [facility] Cholesterol [Mass/Vol] 143 mg/dL <200 [facility] Comment on above: <200 mg/dL Desirable 200-240 mg/dL Borderline >240 mg/dL High Risk Glucose [Mass/Vol] 89 mg/dL 74-106 [facility] Potassium [Moles/Vol] 3.8 mmol/L 3.5-5.1 [facility] Comment on above: Slight Hemolysis, Re sult may be falsely increased. Sodium [Moles/Vol] 139 mmol/L 136-145 [facility] Triglyceride [Mass/Vol] 89 mg/dL <199 [facility] Comment on above: The drugs N-Acetylcy steine and Metamizole may falsely depress this assay.Serum Triglycerides Reference Interval Normal <150 mg/dL Borderline high 150 - 199 mg/dL High 200 - 499 mg/dL Very High > or = 500 mg/dL Basophil percentageOrdered B y: HEALTH ASSESSMENT on 02-04-2023 Basophil percentage 2.5 mg/dL 2.5-4.9 [facility] Bilirubin [Mass/Vol] 0.60 mg/dL 0.20-1.00 [facility] Comment on above: For patients on eltr ombopag therapy, use of Dimension [place] TBIL is not recommended. Chloride [Moles/Vol] 104 mmol/L 98-107 [facility] Cholesterol [Mass/Vol] 143 mg/dL <200 [facility] Comment on above: <200 mg/dL Desirable 200-240 mg/dL Borderline >240 mg/dL High Risk Glucose [Mass/Vol] 90 mg/dL 74-106 [facility] LDH [Catalytic activity/Vol] 196 U/L 84-246 [facility] Comment on above: Slight Hemolysis, Re sult may be falsely increased. Neutrophils (Bld) [#/Vol] 6.0 10*3/uL 2.0-7.7 [facility] Potassium [Moles/Vol] 3.8 mmol/L 3.5-5.1 [facility] Comment on above: Slight Hemolysis, Re sult may be falsely increased. Protein [Mass/Vol] 7.2 g/dL 6.4-8.2 [facility] Sodium [Moles/Vol] 138 mmol/L 136-145 [facility] Triglyceride [Mass/Vol] 87 mg/dL <199 [facility] Comment on above: The drugs N-Acetylcy steine and Metamizole may falsely depress this assay.Serum Triglycerides Reference Interval Normal <150 mg/dL Borderline high 150 - 199 mg/dL High 200 - 499 mg/dL Very High > or = 500 mg/dL WBC (Bld) [#/Vol] 8.5 10*3/uL 4.4-11.0 [facility] Blood erythrocytes count (nu mber/volume)Ordered By: HEALTH ASSESSMENT on 02-04-2023 RBC (Bld) [#/Vol] 4.48 10*6/uL 4.2-5.4 [facility] Blood hemoglobin measurement (mass/volume)Ordered By: HEALTH ASSESSMENT on 02-04-2023 Hemoglobin (Bld) [Mass/Vol] 13.9 g/dL 12.0-15.0 [facility] Blood leukocytes count corre cted for nucleated erythrocytes (number/volume)Ordered By: HEALTH ASSESSMENT on 02-04-2023 WBC corrected for nucl RBC (Bld) [#/Vol] [employer] [facility] Blood platelet mean volumeOr dered By: HEALTH ASSESSMENT on 02-04-2023 Platelet mean volume (Bld) [Entitic vol] 10.7 fL 6.2-12.0 [facility] Determination of erythrocyte mean corpuscular volume (MCV)Ordered By: HEALTH ASSESSMENT on 02-04-2023 MCV (RBC) [Entitic vol] 96.0 fL 81-99 [facility] Direct bilirubinOrdered By: HEALTH ASSESSMENT on 02-04-2023 Bilirubin.direct [Mass/Vol] 0.15 mg/dL 0.00-0.30 [facility] Hematocrit Auto (Bld) [Volum e fraction]Ordered By: HEALTH ASSESSMENT on 02-04-2023 Hematocrit (Bld) [Volume fraction] 43.0 % 37-47 [facility] Laboratory - Chemistry and C hemistry - challengeOrdered By: Louis Don on 02-04-2023 CO2 [Moles/Vol] 27.0 mmol/L 21.0-32.0 [facility] Urea nitrogen/Creatinine [Mass ratio] 19.6 mg/mg 10-20 [facility] Laboratory - Chemistry and C hemistry - challengeOrdered By: HEALTH ASSESSMENT on 02-04-2023 ALP [Catalytic activity/Vol] 48 U/L 45-117 [facility] ALT [Catalytic activity/Vol] 20 U/L 13-56 [facility] Cholesterol.total/Gris sterol in HDL [Mass ratio] 2.10 {ratio} [facility] CO2 [Moles/Vol] 27.0 mmol/L 21.0-32.0 [facility] Globulin (S) [Mass/Vol] 3.4 g/dL 2.2-4.2 [facility] Urea nitrogen/Creatinine [Mass ratio] 19.8 mg/mg 10-20 [facility] Laboratory - Hematology and Cell countsOrdered By: HEALTH ASSESSMENT on 02-04-2023 Erythrocyte distribution width (RBC) [Entitic vol] 45.0 fL 35.1-43.9 [facility] Erythrocyte distribution width (RBC) [Ratio] 12.7 % 11.6-14.6 [facility] MCH (RBC) [Entitic mass] 31.0 pg 27.0-32.0 [facility] Nucleated RBC/100 WBC (Bld) [Ratio] 0 % 0-5 [facility] MCHC Auto (RBC) [Mass/Vol]Or dered By: HEALTH ASSESSMENT on 02-04-2023 MCHC (RBC) [Mass/Vol] 32.3 g/dL 32-36 [facility] No Panel InformationOrdered By: Louis Don on 02-04-2023 Estimated GFR (MDRD) Amer 99 mL/min >60 [facility] Comment on above: GFR Calc Estimated GFR (MDRD) Non-Af Amer 82 mL/min >60 [facility] Comment on above: Non- GFR Calc No Panel InformationOrdered By: HEALTH ASSESSMENT on 02-04-2023 Estimated Creatinine Clearance Calc [employer] [facility] Estimated GFR (MDRD) Amer 101 mL/min >60 [facility] Comment on above: GFR Calc Estimated GFR (MDRD) Non-Af Amer 83 mL/min >60 [facility] Comment on above: Non- GFR Calc Immature Granulocyte % (Auto) [employer] [facility] Platelets bldOrdered By: ARIE LT ASSESSMENT on 02-04-2023 Platelets (Bld) [#/Vol] 251 10*3/uL 150-450 [facility] Review by pathologistOrdered By: HEALTH ASSESSMENT on 02-04-2023 Pathologist review Kenn (Unsp spec) [Interp] [employer] [facility] Segmented neutrophils/100 WB C Auto (Bld)Ordered By: HEALTH ASSESSMENT on 02-04-2023 Segmented neutrophils/100 WBC (Bld) 70.2 % 47-70 [facility] Serum or plasma albumin kyung urement (mass/volume)Ordered By: HEALTH ASSESSMENT on 02-04-2023 Albumin [Mass/Vol] 3.8 g/dL 3.2-5.0 [facility] Serum or plasma albumin/glob ulin mass ratioOrdered By: [facility] ASSESSMENT on 02-04-2023 Albumin/Globulin [Mass ratio] 1.1 {ratio} 0.9-2.4 [facility] Serum or plasma calcium kyung urement (mass/volume)Ordered By: Louis Don on 02-04-2023 Calcium [Mass/Vol] 8.9 mg/dL 8.5-10.1 [facility] Serum or plasma calcium kyung urement (mass/volume)Ordered By: HEALTH ASSESSMENT on 02-04-2023 Calcium [Mass/Vol] 8.7 mg/dL 8.5-10.1 [facility] Serum or plasma cholesterol in HDL measurement (mass/volume)Ordered By: Louis Don on 02-04-2023 Cholesterol in HDL [Mass/Vol] 67 mg/dL >40 [facility] Comment on above: The drugs N-Acetylcy steine and Metamizole may falsely depress this assay. Reference Range HDL <40 mg/dL Low HDL Cholesterol HDL >or= 60 mg/dL High HDL Cholesterol Serum or plasma cholesterol in HDL measurement (mass/volume)Ordered By: HEALTH ASSESSMENT on 02-04-2023 Cholesterol in HDL [Mass/Vol] 69 mg/dL >40 [facility] Comment on above: The drugs N-Acetylcy steine and Metamizole may falsely depress this assay. Reference Range HDL <40 mg/dL Low HDL Cholesterol HDL >or= 60 mg/dL High HDL Cholesterol Serum or plasma cholesterol in VLDL measurement (mass/volume)Ordered By: Louis Don on 02-04-2023 Cholesterol in VLDL [Mass/Vol] 18 mg/dL 5-40 [facility] Serum or plasma cholesterol in VLDL measurement (mass/volume)Ordered By: [facility] ASSESSMENT on 02-04-2023 Cholesterol in VLDL [Mass/Vol] 17 mg/dL 5-40 [facility] Serum or plasma creatinine m easurement (mass/volume)Ordered By: Louis Don on 02-04-2023 Creatinine [Mass/Vol] 0.82 mg/dL 0.55-1.02 [facility] Comment on above: The validity of the calculated GFR & GFRAA in patients over 70 years has not been determined. Clinical correlation is essential. Serum or plasma creatinine m easurement (mass/volume)Ordered By: HEALTH ASSESSMENT on 02-04-2023 Creatinine [Mass/Vol] 0.81 mg/dL 0.55-1.02 [facility] Comment on above: The validity of the calculated GFR & GFRAA in patients over 70 years has not been determined. Clinical correlation is essential. Serum or plasma low density lipoprotein (LDL) cholesterol measurement (mass/volume)Ordered By: Louis Don on 02-04-2023 Cholesterol in LDL [Mass/Vol] 58 mg/dL 0-130 [facility] Serum or plasma low density lipoprotein (LDL) cholesterol measurement (mass/volume)Ordered By: HEALTH ASSESSMENT on 02-04-2023 Cholesterol in LDL [Mass/Vol] 57 mg/dL 0-130 [facility] Serum or plasma urea nitroge n measurement (mass/volume)Ordered By: Louis Don on 02-04-2023 Urea nitrogen [Mass/Vol] 16 mg/dL 7-18 [facility] Serum or plasma urea nitroge n measurement (mass/volume)Ordered By: HEALTH ASSESSMENT on 02-04-2023 Urea nitrogen [Mass/Vol] 16 mg/dL 7-18 [facility] Serum or plasma uric acid me asurement (mass/volume)Ordered By: [facility] ASSESSMENT on 02-04-2023 Urate [Mass/Vol] 3.3 mg/dL 2.6-6.0 [facility] Comment on above: The drugs N-Acetylcy steine and Metamizole may falsely depress this assay. Thin prep Papanicolaou smear with manual screeningOrdered By: Louis Don on 02-04-2023 Thin prep Papanicolaou smear with manual screening 7 5-15 [facility] Thin prep Papanicolaou smear with manual screeningOrdered By: HEALTH ASSESSMENT on 02-04-2023 Thin prep Papanicolaou smear with manual screening 20 U/L 15-37 [facility] Comment on above: Slight Hemolysis, Re sult may be falsely increased. Thin prep Papanicolaou smear with manual screening 7 5-15 [facility] Laboratory - Microbiology an d Antimicrobial susceptibilityon 05-20-2022 SARS-CoV-2 (COVID-19) RNA TAPAN+probe Ql (Unsp spec) Detected [facility] Work Phone: Absolute lymphocyte counton 12-19-2021 Lymphocytes Auto (Unsp spec) [#/Vol] 1.72 10*3/uL 0.83-4.51 [facility] Work Phone: Absolute reticulocyte counto n 12-19-2021 Reticulocytes (Bld) [#/Vol] 0.00 10*3/uL 0-5 [facility] Work Phone: Basophil percentageon 2021 Basophil percentage 2.7 mg/dL 2.5-4.9 [facility] Work Phone: Bilirubin [Mass/Vol] 0.80 mg/dL 0.20-1.00 [facility] Work Phone: Comment on above: For patients on eltr ombopag therapy, use of Dimension [place] TBIL is not recommended. Chloride [Moles/Vol] 104 mmol/L 98-107 [facility] Work Phone: Cholesterol [Mass/Vol] 153 mg/dL <200 [facility] Work Phone: Comment on above: <200 mg/dL Desirable 200-240 mg/dL Borderline >240 mg/dL High Risk Glucose [Mass/Vol] 93 mg/dL 74-106 [facility] Work Phone: Neutrophils (Bld) [#/Vol] 3.8 10*3/uL 2.0-7.7 [facility] Work Phone: Potassium [Moles/Vol] 4.1 mmol/L 3.5-5.1 [facility] Work Phone: Protein [Mass/Vol] 7.0 g/dL 6.4-8.2 [facility] Work Phone: Sodium [Moles/Vol] 137 mmol/L 136-145 [facility] Work Phone: Triglyceride [Mass/Vol] 101 mg/dL [facility] Work Phone: Comment on above: The drugs N-Acetylcy steine and Metamizole may falsely depress this assay.Serum Triglycerides Reference Interval Normal <150 mg/dL Borderline high 150 - 199 mg/dL High 200 - 499 mg/dL Very High > or = 500 mg/dL WBC (Bld) [#/Vol] 6.1 10*3/uL 4.4-11.0 [facility] Work Phone: Blood erythrocytes count (nu mber/volume)on 12-19-2021 RBC (Bld) [#/Vol] 4.51 10*6/uL 4.2-5.4 [facility] Work Phone: Blood hemoglobin measurement (mass/volume)on 12-19-2021 Hemoglobin (Bld) [Mass/Vol] 13.8 g/dL 12.0-15.0 [facility] Work Phone: Blood platelet mean volumeon 12-19-2021 Platelet mean volume (Bld) [Entitic vol] 10.4 fL 6.2-12.0 [facility] Work Phone: Determination of erythrocyte mean corpuscular volume (MCV)on 12-19-2021 MCV (RBC) [Entitic vol] 94.5 fL 81-99 [facility] Work Phone: Direct bilirubinon Bilirubin.direct [Mass/Vol] 0.14 mg/dL 0.00-0.30 [facility] Work Phone: Hematocrit Auto (Bld) [Volum e fraction]on 12-19-2021 Hematocrit (Bld) [Volume fraction] 42.6 % 37-47 [facility] Work Phone: Laboratory - Chemistry and C hemistry - challengeon 12-19-2021 ALP [Catalytic activity/Vol] 45 U/L 45-117 [facility] Work Phone: ALT [Catalytic activity/Vol] 23 U/L 13-56 [facility] [facility] Work Phone: Cholesterol.total/Gris sterol in HDL [Mass ratio] 2.40 {ratio} [facility] Work Phone: CO2 [Moles/Vol] 29.0 mmol/L 21.0-32.0 [facility] Work Phone: Globulin (S) [Mass/Vol] 3.1 g/dL 2.2-4.2 [facility] Work Phone: Urea nitrogen/Creatinine [Mass ratio] 22.7 mg/mg 10-20 [facility] Work Phone: Laboratory - Hematology and Cell countson 12-19-2021 Erythrocyte distribution width (RBC) [Entitic vol] 43.2 fL 35.1-43.9 [facility] Work Phone: Erythrocyte distribution width (RBC) [Ratio] 12.4 % 11.6-14.6 [facility] Work Phone: MCH (RBC) [Entitic mass] 30.6 pg 27.0-32.0 [facility] Work Phone: Nucleated RBC/100 WBC (Bld) [Ratio] 0 % 0-5 [facility] Work Phone: MCHC Auto (RBC) [Mass/Vol]on 12-19-2021 MCHC (RBC) [Mass/Vol] 32.4 g/dL 32-36 [facility]: No Panel Informationon 12-19 Estimated GFR (MDRD) Amer 111 mL/min >60 [facility] Work Phone: Comment on above: GFR Calc Estimated GFR (MDRD) Non-Af Amer 91 mL/min >60 [facility] Work Phone: Comment on above: Non- GFR Calc Platelets bldon 12-19-2021 Platelets (Bld) [#/Vol] 262 10*3/uL 150-450 [facility] Work Phone: Segmented neutrophils/100 WB C Auto (Bld)on 12-19-2021 Segmented neutrophils/100 WBC (Bld) 62.6 % 47-70 [facility] Work Phone: Serum or plasma albumin kyung urement (mass/volume)on 12-19-2021 Albumin [Mass/Vol] 3.9 g/dL 3.2-5.0 [facility] Work Phone: Serum or plasma albumin/glob ulin mass ratioon 12-19-2021 Albumin/Globulin [Mass ratio] 1.3 {ratio} 0.9-2.4 [facility] Work Phone: Serum or plasma calcium kyung urement (mass/volume)on 12-19-2021 Calcium [Mass/Vol] 8.5 mg/dL 8.5-10.1 [facility] Work Phone: Serum or plasma cholesterol in HDL measurement (mass/volume)on 12-19-2021 Cholesterol in HDL [Mass/Vol] 63 mg/dL [facility] Work Phone: Comment on above: The drugs N-Acetylcy steine and Metamizole may falsely depress this assay. Reference Range HDL <40 mg/dL Low HDL Cholesterol HDL >or= 60 mg/dL High HDL Cholesterol Serum or plasma cholesterol in VLDL measurement (mass/volume)on 12-19-2021 Cholesterol in VLDL [Mass/Vol] 20 mg/dL 5-40 [facility] Work Phone: Serum or plasma creatinine m easurement (mass/volume)on 12-19-2021 Creatinine [Mass/Vol] 0.75 mg/dL 0.55-1.02 [facility] Work Phone: Comment on above: The validity of the calculated GFR & GFRAA in patients over 70 years has not been determined. Clinical correlation is essential. Serum or plasma low density lipoprotein (LDL) cholesterol measurement (mass/volume)on 12-19-2021 Cholesterol in LDL [Mass/Vol] 70 mg/dL 0-130 [facility] Work Phone: Serum or plasma urea nitroge n measurement (mass/volume)on 12-19-2021 Urea nitrogen [Mass/Vol] 17 mg/dL 7-18 [facility] Work Phone: Serum or plasma uric acid me asurement (mass/volume)on 12-19-2021 Urate [Mass/Vol] 3.3 mg/dL 2.6-6.0 [facility] Work Phone: Comment on above: The drugs N-Acetylcy steine and Metamizole may falsely depress this assay. Thin prep Papanicolaou smear with manual screeningon 12-19-2021 Thin prep Papanicolaou smear with manual screening 20 U/L 15-37 [facility] Work Phone: Thin prep Papanicolaou smear with manual screening 4 5-15 [facility] Work Phone: Thin prep Papanicolaou smear with manual screening 156 U/L 84-246 [facility] Work Phone: Laboratory - Microbiology an d Antimicrobial susceptibilityon 12-04-2021 SARS-CoV-2 (COVID-19) RNA TAPAN+probe Ql (Unsp spec) Not detected [facility] Work Phone: No Panel Informationon 12-04 Influenza Types A,B Rapid (Clinic) Not detected [facility] Work Phone: Laboratory - Microbiology an d Antimicrobial susceptibilityon 09-11-2021 SARS-CoV-2 (COVID-19) RNA TAPAN+probe Ql (Unsp spec) Not detected [facility] Work Phone: No Panel Informationon 09-11 Influenza Types A,B Rapid (Clinic) Not detected [facility] Work Phone: Office Visit: Spine Visit- U pper back & neck painon 01-25-2017 Documentation of current medications (procedure) Done Invalid Interpretation Code [facility] Work Phone: Protein mass conc Done [facility] Work Phone: Office Visit: Spine Visit- N EWon 01-11-2017 Alcoholism counseling (procedure) no Invalid Interpretation Code [facility] Work Phone: Protein mass conc Done [facility] Work Phone: Protein mass conc no [facility] Work Phone: Tobacco smoking status NHIS Former smoker [facility] Work Phone: Tobacco use [facility] Former smoker Invalid Interpretation Code [facility] Work Phone: Vital Signs Date Time Vital Sign Value Performing Clinician Facility 03-07-2024 12:59-0400 Body height 163.4 cm Sarnia Piter FOOD SAFETY AUDITOR.SENIOR SALES CONSULTANT Work Phone: [facility] 03-07-2024 12:59-0400 Body mass index (BMI) [Ratio] 22.26 kg/m2 Sarina Paoli FOOD SAFETY AUDITOR.SENIOR SALES CONSULTANT Work Phone: [facility] 03-07-2024 12:59-0400 Body weight 59.42 kg Sarina Ptier FOOD SAFETY AUDITOR.SENIOR SALES CONSULTANT Work Phone: [facility] 03-07-2024 12:59-0400 Diastolic blood pressure 62 mm[Hg] Sarina Piter FOOD SAFETY AUDITOR.SENIOR SALES CONSULTANT Work Phone: [facility] 03-07-2024 12:59-0400 Systolic blood pressure 110 mm[Hg] Sarina Paoli FOOD SAFETY AUDITOR.SENIOR SALES CONSULTANT Work Phone: [facility] 11-17-2021 13:32-0400 Body height 161.9 cm Mis Frazier MD Work Phone: [facility] 11-17-2021 13:32-0400 Body weight 61.69 kg Mis Frazier MD Work Phone: [facility] 11-17-2021 13:32-0400 Diastolic blood pressure 72 mm[Hg] Mis Frazier MD Work Phone: [facility] 11-17-2021 13:32-0400 Systolic blood pressure 106 mm[Hg] Mis Frazier MD Work Phone: [facility] 01-11-2017 10:31-0400 BMI (Body Mass Index) 21.97 kg/m2 Annie Carrillo DC [facility] Work Phone: 01-11-2017 10:31-0400 Height 162.56 cm Annie Carrillo DC [facility] Work Phone: 01-11-2017 10:31-0400 Pulse (Heart Rate) 81 /min Annie Carrillo DC [facility] Work Phone: 01-11-2017 10:31-0400 Respiratory Rate 17 /min Annie Carrillo DC [facility] Work Phone: 01-11-2017 10:31-0400 Weight 58.06 kg Annie Carrillo DC [facility] Work Phone: Encounters Encounter Date Encounter Type Care Provider Facility Start: 05-28-2025 End: 05-28-2025 ambulatory Mis Frazier Facility:[facility] Start: 05-09-2025 End: 05-09-2025 ambulatory SELF Facility:[facility] Start: 05-09-2025 Encounter for gynecological examination (general) (routine) without abnormal findings MIS FRAZIRE [facility] Start: 02-09-2025 End: 02-09-[address] Louis Don MD Work Phone: -Laboratory [facility] Start: 02-09-2025 End: 02-09-[address] Louis Don MD -[facility] Start: 02-09-2025 Registered Referred [facility] [employer] Start: 02-09-2025 ambulatory Health Risk Assessment Facility:[facility] Start: 02-09-2025 End: 02-09-2025 ambulatory Louis Don Facility:[facility] Start: 03-07-2024 End: 03-07-2024 Patient encounter procedure Sarina Dumas APRN.CNP Work Phone: OB/Gynecology Comment on above: Encounter for gyneco logical examination (general) (routine) without abnormal findings (Primary Dx); Encounter for screening mammogram for breast cancer Start: 03-07-2024 End: 03-07-2024 Patient encounter status Sarina Dumas QUENTINChariBENNY Work Phone: [facility] Start: 04-15-2023 End: 04-15-2023 ambulatory [facility] Work Phone: Start: 04-15-2023 End: 04-15-2023 [facility] Start: 02-04-2023 Registered Referred [facility] Start: 02-04-2023 End: 02-04-2023 [facility] Start: 01-15-2023 End: 01-15-2023 Patient encounter procedure [facility]-Radiology, [facility] Work Phone: Start: 05-20-2022 End: 05-20-[address] Louis Don Work Phone: [facility] Start: 04-14-2022 End: 04-14-2022 ambulatory [facility] Work Phone: Start: 04-14-2022 End: 04-14-2022 Patient encounter procedure [facility]-Outpatient Breast Imaging Start: 12-19-2021 End: 12-19-[address] Louis Don Work Phone: [facility] Start: 12-19-[address] Louis au Work Phone: [facility] Start: 12-04-2021 End: 12-04-[address] Louis Don Work Phone: [facility] Start: 11-17-2021 End: 11-17-2021 Patient encounter procedure Mis Frazier MD Work Phone: OB/Gynecology Comment on above: Encounter for gyneco logical examination (general) (routine) without abnormal findings; Encounter for screening mammogram for breast cancer Start: 11-17-2021 End: 11-17-2021 Patient encounter status Mis Frazier MD Work Phone: OB/Gynecology Start: 09-11-2021 End: 09-11-[address] Louis Don Work Phone: [facility] Procedures Date Procedure Procedure Detail Performing Clinician Start: 02-09-2025 Serum inorganic phos phate measurement Dr. Louis Don MD Work Phone: Start: 02-09-2025 Urnls dip stick/tabl et reagent auto microscopy Dr. Louis Don MD Work Phone: Start: 04-15-2023 Screening mammography Start: 01-15-2023 Plain x-ray of pelvi s and lower extremity Start: 04-14-2022 Screening mammography Start: 01-25-2017 End: 01-25-2017 Chiropract manj 1-2 regions Annie B Dossi DC Work Phone: Start: 01-25-2017 End: 01-25-2017 Electric stimulation therapy Annie B Dossi DC Work Phone: Start: 01-11-2017 End: 01-11-2017 Chiropract manj 1-2 regions Annie B Dossi DC Work Phone: Start: 01-09-2016 Adult depression scr eening assessment Mis Frazier MD Work Phone: Plan of Treatment Date Care Activity Detail Author Start: 02-18-2028 Screening for malignant neoplasm of cervix Cervical Cancer Screening [facility] Start: 03-09-2025 End: 03-09-2025 Patient encounter procedure 03/09/2025 3:30 PM EDT Office Visit OB/Gynecology [address] [place] [address] Sarina Dumas APRN.SENIOR SALES CONSULTANT [address] [place], [place] [id number] Annual OB/Gynecology Comment on above: Annual Start: 04-15-2024 Screening for malignant neoplasm of breast Mammogram Screening [facility] Start: 03-26-2024 Influenza vaccination Influenza Vacc ine (#1) [facility] Start: 08-29-2023 HPV TESTING HPV TESTING [facility] Start: 08-29-2023 PAP TESTING PAP TESTING [facility] Start: 03-26-2023 Covid-19 Vaccine () Covid-19 Vaccine () [facility] Start: 2021 Urine microalbumin profile [facility] Start: 01-28-2017 End: 01-28-2017 Appointment Appointment [facility] Work Phone: Start: 01-25-2017 End: 01-25-2017 Appointment Appointment [facility] Work Phone: Start: 01-25-2017 End: 01-25-2017 Follow up Appt 2x/week Follow up Appt 2x/week [facility] Work Phone: Start: 01-14-2017 End: 01-14-2017 Appointment Appointment [facility] Work Phone: Start: 01-11-2017 End: 01-11-2017 Appointment Appointment [facility] Work Phone: Start: 01-11-2017 End: 01-11-2017 Follow up Appt 2x/week Follow up Appt 2x/week [facility] Work Phone: Start: 01-08-2017 Adult depression screening assessment DEPRESSION SCREENING [facility] Start: 12-27-2006 HPV Vaccine (2 - 3-dose series) HPV Vaccine (2 - 3-dose series) [facility] Start: 2001 Hepatitis B Vaccine (1 of 3 - 19+ 3-dose series) Hepatitis B Vaccine (1 of 3 - 19+ 3-dose series) [facility] Start: 02-24-2000 Anxiety Screening Anxiety Screening [facility] Start: 02-24-2000 Depression Screening Depression Scre ening [facility] Start: 02-24-2000 HEPATITIS C SCREENING HEPATITIS C [facility] Start: 02-24-2000 Hepatitis C screening Hepatitis C [facility] End: 12-17-2022 SANDRA SCREENING W CHANDA SANDRA SCREENING W CHANDA Radiology Routine Encounter for gynecological examination (general) (routine) without abnormal findings Encounter for screening mammogram for breast cancer 1 Occurrences starting 11/17/2021 until 12/17/2022 [facility] Work Phone: Comment on above: 1 Occurrences starti ng 11/17/2021 until 12/17/2022 Immunizations Immunization Date Immunization Notes Care Provider [facility] 05-25-2024 influenza, seasonal, injectable, preservative free Dr. Louis Don MD Work Phone: [facility] 05-24-2023 influenza, injectabl e, quadrivalent, preservative free Dr. Louis Don MD Work Phone: [facility] 05-24-2023 influenza virus vaccine, unspecified formulation Sarina Paoli FOOD SAFETY AUDITOR.SENIOR SALES CONSULTANT Work Phone: [facility] 04-27-2022 influenza, injectabl e, quadrivalent, preservative free [facility] 04-27-2022 influenza, seasonal, injectable Dr. Louis Don Work Phone: [facility] 06-06-2021 Covid (Moderna) Dr. Louis macias Work Phone: [facility] 04-30-2021 influenza, injectabl e, quadrivalent, preservative free [facility] 04-30-2021 influenza, seasonal, injectable Dr. Louis Don Work Phone: [facility] Work Phone: 04-30-2021 influenza, seasonal, injectable, preservative free Sarina Piter FOOD SAFETY AUDITOR.SENIOR SALES CONSULTANT Work Phone: [facility] 08-26-2020 Covid (Moderna) Dr. Louis macias Work Phone: [facility] 07-29-2020 Covid (Moderna) Dr. Louis macias Work Phone: [facility] 04-21-2020 influenza, injectabl e, quadrivalent, preservative free [facility] 04-21-2020 influenza, seasonal, injectable Dr. Louis Don Work Phone: [facility] Work Phone: 05-14-2019 influenza, injectabl e, quadrivalent, preservative free [facility] 05-14-2019 influenza, seasonal, injectable Dr. Louis Don Work Phone: [facility] Work Phone: 05-04-2019 influenza virus vaccine, unspecified formulation Sarina Piter FOOD SAFETY AUDITOR.SENIOR SALES CONSULTANT Work Phone: [facility] 04-25-2018 influenza virus vaccine, unspecified formulation Sarina Paoli FOOD SAFETY AUDITOR.SENIOR SALES CONSULTANT Work Phone: [facility] 04-20-2018 influenza, injectabl e, quadrivalent, preservative free [facility] 04-20-2018 influenza, seasonal, injectable Dr. Louis Don Work Phone: [facility] Work Phone: 05-04-2017 influenza, injectabl e, quadrivalent, preservative free [facility] 05-04-2017 influenza, seasonal, injectable Dr. Louis Don Work Phone: [facility] Work Phone: 04-23-2016 influenza, injectabl e, quadrivalent, preservative free [facility] 04-23-2016 influenza, seasonal, injectable Dr. Louis Don Work Phone: [facility] Work Phone: 06-05-2015 influenza, injectabl e, quadrivalent, preservative free [facility] 06-05-2015 influenza, seasonal, injectable Dr. Louis Don Work Phone: [facility] Work Phone: 05-15-2015 influenza, seasonal, injectable Mis Frazier MD Work Phone: [facility] Work Phone: 04-25-2014 influenza, injectabl e, quadrivalent, preservative free [facility] 04-25-2014 influenza, seasonal, injectable Dr. Louis Don Work Phone: [facility] Work Phone: 08-02-[address] Louis Don Work Phone: [facility] 08-02-2013 influenza, seasonal, injectable Sarina Paoli FOOD SAFETY AUDITOR.SENIOR SALES CONSULTANT Work Phone: [facility] 08-02-2013 influenza, seasonal, injectable, preservative free Sarina Piter FOOD SAFETY AUDITOR.SENIOR SALES CONSULTANT Work Phone: [facility] 05-24-2013 influenza virus vaccine, unspecified formulation Mis Frazier MD Work Phone: [facility] 05-26-2011 influenza virus vaccine, unspecified formulation Mis Frazier MD Work Phone: [facility] 2011 tetanus toxoid, redu [place] diphtheria toxoid, and acellular pertussis vaccine, adsorbed Mis Frazier MD Work Phone: [facility] 11-29-2006 human papilloma viru s vaccine, quadrivalent Mis Frazier MD Work Phone: [facility] Work Phone: Payers Date Payer Category Payer Self-pay [id number] 2022 Private Health Insurance [facility] Joaquin [facility] [id number] 2022-Present [phone] [address] [place] [address] PPO [id number] 2022 Unknown [id number] 2019 Unknown MMO MMO TPA [id number] 2019-Present [address] [place] [address] PPO [id number] 2016 Unknown [id number] Unknown [id number] Unknown [id number] Social History Date Type Detail Facility Start: 03-07-2024 Tobacco smoking stat us VTIS Ex-smoker [facility] Work Phone: Start: 11-17-2021 End: 03-07-2024 Alcohol intake Current drinker of alcohol (finding) [facility] Start: 08-20-2010 History SDOH Alcohol Comment RARELY,NOT WHILE [facility] Start: 1982 Sex Assigned At Female [facility] Start: 11-07-2021 End: 11-17-2021 Exposure to SARS-CoV-2 (event) Not sure [facility] Start: 06-13-2019 End: 05-20-2022 Tobacco smoking status NHIS Unknown if ever smoked [facility] History of tobacco use Current smoker [facility] Start: 03-07-2024 Tobacco use and exposure Smokeless tobacco non-user [facility] Start: 02-17-2023 End: 03-07-2024 History of Social function [facility] Start: 02-17-2023 End: 03-07-2024 Tobacco use panel [facility] National Score (1-100), lower number is lower risk [address] [facility] Start: 03-07-2024 Tobacco Comment smoked at the age of 19/18 for about one year and has seen quit (1 pack about every two weeks) [facility] Start: 11-15-2021 Gender identity Identifies as female gender (finding) [facility] Start: 05-20-2022 Tobacco smoking stat us VTIS Never smoked tobacco (finding) [facility] Clinical Notes 05-14-2011 to 05-09-2025 Sarina Dumas APRN.[facility] - 03/07/2024 12:58 PM Demond Frazier, MD - 11/17/2021 1:31 PM EDT Note Date & Type Note Facility 05-09-2025 Note HNO ID: [id number] Author: MIS FRAZIER MD Service: ? Author Type: Physician Type: Progress Notes Filed: 05/09/2025 14:21 Note Text: Alexandra is a 45 year old who presents for an annual gynecologic exam without complaints. Still get period: No LMP: no w/ mirena Time with current partner: 26 control frequency: Always HPV vaccine: No; History of abnormal pap: No, all prior PAP smears have been normal Bothersome pelvic pain: No Last mammogram:up to date OB History Gravida2 Para1 Term1 Preterm0 AB1 Living1 SAB1 IAB0 Ectopic0 Multiple0 Live Births1 Telecommunications Linesworker History LMP: 12/14/2014, IUD Age at Menarche: 18 Age at First : Age at Menopause: Telecommunications Linesworker History Comments: Sexual Activity: Yes; Male; Mirena 12/30/2020 Contraception: I.U.D. PAST MEDICAL HISTORY Diagnosis Date Allergic rhinitis, cause unspecified DERMATITIS NOS 07/15/2006 Hypoglycemia, unspecified Unspecified asthma(493.90) PAST SURGICAL HISTORY Procedure Laterality Date INSERTION OF IUD 11/2014 INSERTION OF IUD 12/30/2020 TONSILLECTOMY PRIMARY/SECONDARY Tonsillectomy FAMILY HISTORY Problem Relation Age of Onset None Mother other (Rheumtoid Arthritis) Father Heart Father Diabetes Maternal Grandmother Stroke Maternal Grandmother Diabetes Maternal Grandfather Heart Maternal Grandfather mi, with a blocked artery Hypertension Maternal Grandfather Lipids Maternal Grandfather Cancer Maternal Aunt ovarian ca, unsure SOCIAL HISTORY Social History Tobacco Use Smoking status: Former Smokeless tobacco: Never Tobacco comments: smoked at the age of 19/18 for about one year and has seen quit (1 pack about every two weeks) Vaping Use Vaping status: Never Used Substance Use Topics Alcohol use: Yes Comment: RARELY,NOT WHILE Drug use: No REVIEW OF SYSTEMS Abdomen: No abdominal pain, nausea, vomiting, diarrhea, or constipation. No bloating, early satiety, indigestion, or increased flatulence. Bladder: No dysuria, gross hematuria, urinary frequency, urinary urgency, or incontinence. Breast: No breast lumps, nipple d/c, overlying skin changes, redness or skin retraction. Allergies and current medication updated:Yes SENSITIVE EXAM: The sensitive examination was discussed with the Patient or Patient's Authorized Gasoline Truck Operator. As applicable, any other physician, advance practice provider, medical student, or other health professional student that will be observing or involved in the sensitive examination for educational or training purposes was discussed with the Patient or Authorized Gasoline Truck Operator. The Patient or Authorized Gasoline Truck Operator has agreed to proceed with the sensitive examination. (Sensitive examination includes inspection and/or palpation of the breasts, pelvis, prostate and anorectal regions). EXAM: BP 98/58 Ht 5' 4.25 (1.63m) Wt 135 lb (61.2kg) LMP 12/14/2014 BMI 22.99 kg/(m2). GENERAL: pleasant, female in no apparent distress HEENT: Normocephalic, atraumatic, mucus membranes moist, and no lesions NECK: Supple, full range of motion, no adenopathy, and thyroid normal DERMATOLOGY: Normal, without lesions, non-icteric, and non-hirsute BREAST: soft, non-tender, symmetric, no dominant mass, normal nipple-areolar complex, no lymphadenopathy, and no nipple discharge CHEST: Normal inspiratory effort ABDOMEN: soft, non-tender, and no masses PELVIC: external genitalia normal, normal Bartholin's glands, urethra, [place]'s glands, no vulvar lesions, no cervical lesions, good vaginal support, physiologic discharge present, normal appearing perineal body and perianal region BIMANUAL: uterus normal size, shape and consistency, no adnexal masses, and non-tender RECTOVAGINAL: deferred. NEURO: alert and oriented x3,exam grossly non-focal EXTREMITIES: normal ASSESSMENT/PLAN: 1) Health maintenance: Pap done with HPV. Mammogram ordered. 2) Contraception: IUD. Contraceptive options reviewed and information provided. 3) STD screening: Declined STI check. 4) Follow up one year or sooner as needed Mis Frazier MD [facility] 03-07-2024 History of Present illness Narrative Communication Specialist offered: Patient declines. Alexandra is a 44 year old who presents for an annual gynecologic exam without complaints. Menses: no menses - Mirena IUD. Contraception: IUD expires 2028 HPV vaccine: No Last Pap: 02/24/2023 normal HPV: 2023 negative History of abnormal pap: No Last mammogram: 2022normal @ [facility] Sexually active: Yes Pain with intercourse: No Postcoital bleeding: No OB History T1 L1 SAB1 IAB0 Ectopic0 Multiple0 Live Births1 Telecommunications Linesworker History LMP: 12/14/2014, IUD Age at Menarche: Age at First : Age at Menopause: Telecommunications Lines[employer] History Comments: Sexual Activity: Yes; Male; Mirena November 2014 Contraception: I.U.D. PAST MEDICAL HISTORY No date: Allergic rhinitis, cause unspecified 07/15/2006: DERMATITIS NOS No date: Hypoglycemia, unspecified No date: Unspecified asthma(493.90)PAST SURGICAL HISTORY 11/2014: INSERTION OF IUD 03/2010: TONSILLECTOMY PRIMARY/SECONDARY <AGE 12 Comment: Tonsillectomy FAMILY HISTORY Problem Relation Age of Onset None Mother other (Rheumtoid Arthritis) Father Heart Father Diabetes Maternal Grandmother Stroke Maternal Grandmother Diabetes Maternal Grandfather Heart Maternal Grandfather mi, with a blocked artery Hypertension Maternal Grandfather Lipids Maternal Grandfather Cancer Maternal Aunt ovarian ca, unsure SOCIAL HISTORY Social History Tobacco Use Smoking status: Former Smokeless tobacco: Never Tobacco comments: smoked at the age of [age] for about one year and has seen quit (1 pack about every two weeks) Vaping Use Vaping Use: Never used Substance Use Topics Alcohol use: Yes Comment: RARELY,NOT WHILE Drug use: No REVIEW OF SYSTEMS Abdomen: No abdominal pain, nausea, vomiting, diarrhea, or constipation. No bloating, early satiety, indigestion, or increased flatulence. Bladder: No dysuria, gross hematuria, urinary frequency, urinary urgency, or incontinence. Breast: No breast lumps, nipple d/c, overlying skin changes, redness or skin retraction. Allergies and current medication updated:Yes EXAM: BP 110/62 Ht 5' 4.331 (1.63m) Wt 131 lb (59.4kg) LMP 12/14/2014 BMI 22.26 kg/(m^2). GENERAL: pleasant, female in no apparent distress HEENT: Normocephalic, atraumatic, mucus membranes moist, and no lesions NECK: Supple, full range of motion, no adenopathy, and thyroid normal DERMATOLOGY: Normal, without lesions, non-icteric, and non-hirsute BREAST: soft, non-tender, symmetric, no dominant mass, normal nipple-areolar complex, no lymphadenopathy, and no nipple discharge CHEST: Normal inspiratory effort ABDOMEN: soft, non-tender, and no masses PELVIC: external genitalia normal, normal Bartholin's glands, urethra, [place]'s glands, no vulvar lesions, no cervical lesions, good vaginal support, physiologic discharge present, normal appearing perineal body and perianal region, IUD strings NOT visible BIMANUAL: uterus normal size, shape and consistency, no adnexal masses, and non-tender RECTOVAGINAL: deferred. NEURO: alert and oriented x3,exam grossly non-focal EXTREMITIES: normal ASSESSMENT/PLAN: 1) Health maintenance: Pap/HPV up to date. Mammogram order faxed to [facility] Nutrition, exercise and routine health maintenance exams reviewed. Calcium/Vitamin D supplementation information provided. 2) Contraception: IUD. Contraceptive options reviewed and information provided. 3) STD screening: Declined STD check. 4) Follow up one year or sooner as needed Sarina Dumas APRN.SENIOR SALES CONSULTANT documented in this encounter [facility] 11-17-2021 History of Present illness Narrative Alexandra is a 41 year old who presents for an annual gynecologic exam without complaints. Menses: n/a w/ Mirena. Contraception: IUD HPV vaccine: Yes Last Pap: 08/31/2018 normal HPV: 08/31/2018 negative History of abnormal pap: No Last mammogram: never Sexually active: Yes OB History T1 L1 SAB1 IAB0 Ectopic0 Multiple0 Live Births1 Telecommunications Linesworker History LMP: 12/14/2014, IUD Age at Menarche: Age at First : Age at Menopause: Telecommunications Linesworker History Comments: Sexual Activity: Yes; Male; Mirena November 2014 Contraception: I.U.D. PAST MEDICAL HISTORY Diagnosis Date Allergic rhinitis, cause unspecified DERMATITIS NOS 07/15/2006 Hypoglycemia, unspecified Unspecified asthma(493.90) PAST SURGICAL HISTORY Procedure Laterality Date INSERTION OF IUD 11/2014 TONSILLECTOMY PRIMARY/SECONDARY <AGE 12 03/2010 Tonsillectomy FAMILY HISTORY Problem Relation Age of Onset None Mother other (Rheumtoid Arthritis) Father Diabetes Maternal Grandmother Stroke Maternal Grandmother Diabetes Maternal Grandfather Heart Maternal Grandfather mi, with a blocked artery Hypertension Maternal Grandfather Lipids Maternal Grandfather Cancer Maternal Aunt ovarian ca, unsure SOCIAL HISTORY Social History Tobacco Use Smoking status: Former Smoker Smokeless tobacco: Never Used Tobacco comment: smoked at the age of [age] for about one year and has seen quit (1 pack about every two weeks) Vaping Use Vaping Use: Never used Substance Use Topics Alcohol use: Yes Comment: RARELY,NOT WHILE Drug use: No REVIEW OF SYSTEMS Abdomen: No abdominal pain, nausea, vomiting, diarrhea, or constipation. No bloating, early satiety, indigestion, or increased flatulence. Bladder: No dysuria, gross hematuria, urinary frequency, urinary urgency, or incontinence. Breast: No breast lumps, nipple d/c, overlying skin changes, redness or skin retraction. Allergies and current medication updated:Yes EXAM: Ht 5' 3.75 (1.62m) Wt 136 lb (61.7kg) LMP 12/14/2014 BMI 23.53 kg/(m^2). GENERAL: pleasant, female in no apparent distress HEENT: Normocephalic, atraumatic, mucus membranes moist and no lesions NECK: Supple, full range of motion, no adenopathy and thyroid normal DERMATOLOGY: Normal, without lesions, non-icteric and non-hirsute BREAST: soft, non-tender, symmetric, no dominant mass, normal nipple-areolar complex, no lymphadenopathy and no nipple discharge CHEST: Normal inspiratory effort ABDOMEN: soft, non-tender and no masses PELVIC: external genitalia normal, normal Bartholin's glands, urethra, [place]'s glands, no vulvar lesions, no cervical lesions, good vaginal support, physiologic discharge present, normal appearing perineal body and perianal region, IUD strings noted BIMANUAL: uterus normal size, shape and consistency, no adnexal masses and non-tender RECTOVAGINAL: deferred. NEURO: alert and oriented x3,exam grossly non-focal EXTREMITIES: normal ASSESSMENT/PLAN: 1) Health maintenance: Pap/HPV up to date. Mammogram starting age 40. 2) Contraception: IUD. Contraceptive options reviewed and information provided. 3) STD screening: Declined STD check. 4) Follow up one year or sooner as needed Mis Frazier MD documented in this encounter [facility] 05-14-2011 History of Past i llness Narrative Problem Noted Date Resolved Date Supervision of normal first 05/14/2011 01/25/2013 Missed 09/10/2010 09/12/2010 TOXIC EFFECT SHELLFISH 08/09/2008 1 Overview: History of shellfish allergy (crabmeat and shrimp)--itchy lips and tongu and throat swelling . Tolerates fish Contact dermatitis and other eczema, due to unspecified cause 07/15/2006 07/10/2011 documented as of this encounter (statuses as of 11/17/2021) [facility]Reason for visit Narrative* Chief Complaint COVID-19 COVID-[address] [place] [address] Work Phone: Chief complaint+Reason for visit Narrative* Chief Complaint [facility] Work Phone: Evaluation note* Diagnosis Encounter for gynecological examination (general) (routine) without abnormal findings Encounter for screening mammogram for breast cancer documented [facility] this encounter [facility] noteNo assessment information availableWProMedica [facility] Work Phone: Evaluation note* Diagnosis Encounter for gynecological examination (general) (routine) without abnormal findings- Primary Encounter for screening mammogram for breast cancer documented [facility] this [facility] for [facility] (narrative)* Diagnostic Procedure Only (Routine) - Pending Review Specialty Diagnoses / Procedures Referred By Contac t Referred To Contact [facility] Diagnoses Encounter for gynecological examination (general) (routine) without abnormal findings Encounter for screening mammogram for breast cancer Procedures SANDRA SCREENING W CHANDA SCREENING DIGITAL BREAST TOMOSYNTHESIS BI SCREENING MAMMOGRAPHY BI 2-VIEW BREAST INC CAD Mis Frazier MD [address] [place] [address] [facility] [address] [place] [address] Referral ID Status Reason Start Date Expiration Date Visits Requested Visits Authorized [id number] Pending Review Auto-Generat ed Referral 11/17/2021 12/17/2022 [address] [facility] (narrative)No reason for referral information availableWProMedica [facility] Work Phone: Chief Complaint and Reason for Visit Chief Complaint SCREENING Chief Complaint Louis Don [employer] SCREENING Chief Complaint Admit Date [employer]EE [employer] February 09, 2025 12:4 2pm Summary Purpose Family History No Family History Records FoundNo Family History Records Found Advance Directives No Advanced Directives Records FoundNo Advanced Directives Records Found Additional Source Comments Source Comments (unrecognize d section and content) In the event this informatio n is protected by the Federal Confidentiality of Alcohol and Drug Abuse Patient Records regulations: The Federal rules restrict any use of the information to criminally investigate or prosecute any alcohol or drug abuse patient.[facility] the event this information is protected by the Federal Confidentiality of Alcohol and Drug Abuse Patient Records regulations: The Federal rules restrict any use of the information to criminally investigate or prosecute any alcohol or drug abuse patient.[facility] Reason for Visit (unrecogniz ed section and content) Specialty Diagnoses / Procedures Referred By Lewis joseph Referred To Contact LEATHER COLORER Diagnoses Women's annual routine gynecological examination ANNUAL EXAM Procedures WELLNESS EXAMS EST 18-39 YRS EST WHI ANNUAL PATIENT Mis Frazier MD [address] [place] [address] Mis Frazier MD [address] [place] [address] Referral ID Status Reason Start Date Expiration Date Visits Re quested Visits Authorized [id number] Closed 07/26/2021 07/25/2022 1 1 Reason Comments [facility] Teams (unrecognized sec tion and content) Manager Environmental Health And Safety Relationship Specialty Start Date End Date Zonia Barton MD [address] [place] [address] PCP - General 12/07/02 Team Status: Active Member Role Status Dates Dr. Louis Don MD Family Provider Active Dr. Louis Don MD Primary Care Provider Active Team Status: Inactive Member Role Status Dates Dr. Louis Don MD Primary Care Provi maggy, Attending Provider, Referring Provider Active Team Status: Active Member Role Status Dates Dr. Louis Don MD Primary Care Provider Active Health Risk Assessment Attending Provider, Referring P rakel Active Team Status: Inactive Member Role Status Dates Dr. Louis Don MD Primary Care Provider Active Dr. Mis Frazier MD Attending Provider, Referring Provider Active Manager Environmental Health And Safety Relationship Specialty Start Date End Date Zonia Barton MD [address] [place] [address] PCP - General 12/07/02 Team Status: Active Member Role/Relationship Status Dates Dr. Louis Don MD Family Provider Active Dr. Louis Don MD Primary Care Provider Active Team Status: Active Member Role/Relationship Status Dates Dr. Louis Don MD Primary Care Provider Active Start: February 09, 2025 Health Risk Assessment Attending Provider Active Start: February 09, 2025 Health Risk Assessment Referring Provider Active Start: February 09, 2025 Team Status: Inactive Member Role/Relationship Status Dates Dr. Louis Don MD Primary Care Provider Active Start: February 09, 2025 End: February 09, 2025 Dr. Louis Don MD Attending Provider Active Start: February 09, 2025 End: February 09, 2025 Dr. Louis Don MD Referring Provider Active Start: February 09, 2025 End: February 09, 2025 Goals (unrecognized section and content) Goals may be documented in a n alternate sectionGoals may be documented in an alternate sectionGoals may be documented in an alternate sectionGoals may be documented in an alternate sectionGoals may be documented in an alternate section INFORMATION SOURCE (unrecogn ized section and content) DATE CREATED AUTHOR 05/11/2025 [facility] DATE CREATED AUTHOR AUTHOR'S ORGANIZ ATION 06/03/2025 [facility] FOR RECORDS PERTAINING TO PATIENTS WHO ARE OR HAVE BEEN ENROLLED IN A CHEMICAL DEPENDENCY/SUBSTANCEABUSE PROGRAM, SOME INFORMATION MAY BE OMITTED. This clinical summary was aggregated from multiple sources. Caution should be exercised in using it in the provision of clinical care. This summary normalizes information from multiple sources, and as a consequence, information in this document may materially change the coding, format and clinical context of patient data. In addition, data may be omitted in some cases. CLINICAL DECISIONS SHOULD BE BASED ON THE PRIMARY CLINICAL RECORDS. [employer] provides no warranty or guarantee of the accuracy or completeness of information in this document.
== END | disposition home or self-care (01) ==
LOC: MTRAD 15:38
PROVIDERS: PCP Family Medicine; Referring Provider Family Medicine; Visit Provider Family Medicine
DX: M54.2 Cervicalgia (principal)
CPT/HCPCS: 72052